=== PATIENT | female | born 1960 | race Caucasian/White ===

== ENCOUNTER → 2017-07-05 08:34 | Outpatient (CLI) | payer BC, SELFPAY ==
[2017-07-05 09:16] LABS: Hemoglobin A1C 7.8 % (0.0-7.0)
[2017-07-05 10:38] LABS: Alanine Aminotransferase 31 U/L (12-78); Albumin Level 3.7 gm/dL (3.4-5.0); Alkaline Phosphatase 85 U/L (46-116); Anion Gap 16.5 mEq/L (5-15); Aspartate Amino Transferase 13 U/L (15-37); Bilirubin,Total 0.3 mg/dL (0.2-1.0); Blood Urea Nitrogen 14 mg/dL (7-18); Calcium 9.4 mg/dL (8.5-10.1); Carbon Dioxide 26 mmol/L (21.0-32.0); Chloride 104 mmol/L (98-107); Chol/HDL Ratio 7.8 (1-3.5); Cholesterol 320 mg/dL (140-200); Estimated Glomerular Filt Rate 87 ml/min (>60); GFR (African American) 105 ML/MIN (>60); Globulin 3.6 gm/dl (1.3-3.2); Glucose 199 mg/dL (74-106); HDL Cholesterol 41 mg/dL (29-89); Potassium 4.5 mmoL/L (3.5-5.1); Sodium 142 mmol/L (136-145); Total Protein,Serum 7.3 gm/dL (6.4-8.2)
[2017-07-05 10:39] LABS: Triglycerides 472 mg/dL (30-200)
== END ==
PROVIDERS: PCP Physician Assistant; Visit Provider Physician Assistant
DX: E11.9 Type 2 diabetes mellitus without complications (principal); I10 Essential (primary) hypertension; Z13.220 Encounter for screening for lipoid disorders
CPT/HCPCS: 36415; 80053; 80061; 83036

== ENCOUNTER → 2018-11-17 07:18 | Outpatient (CLI) | payer BC, SELFPAY ==
--- NOTE | 2018-11-17 07:23 | NM_ITS ---
CARDIOLITE SPECT MYOCARDIAL PERFUSION LEXISCAN, REST AND STRESS: History: Hypertension diabetes, hyperlipidemia, family history, chest pain, shortness of breath and fatigue Procedure: Patient received a 0.4 mg of intravenous Lexiscan, resting heart rate 104 bpm resting blood pressure 138/85, with Lexiscan maximum heart rate achieved was 1 25 bpm which is less than 85% of the maximum] heart rate and a blood pressure was 121/81. With Lexiscan patient complained of nausea and shortness of breath Electrocardiogram: Resting electrocardiogram showed sinus rhythm nonspecific ST-T changes, with Lexiscan there is less than 1.[address] segment depression noted from the baseline EKG. The EKG portion of the Lexiscan Myoview is nondiagnostic. Cardiac stress and resting SPECT images: Cardiac stress and resting SPECT images were obtained using technetium 99 sestamibi 32.6 mCi at stress and 10.9 mCi at rest gated SPECT further analysis of segmental wall motion and calculation of the ejection fraction also done. Cardiac stress and the suspect show uniform myocardial activity without segmental perfusion abnormality, greater derived ejection fraction is over 65% with no regional wall motion abnormality, right ventricle is normal size and contractility. Conclusion: 1. The EKG portion of the Lexiscan Myoview is nondiagnostic. 2. No scintigraphic evidence of reversible ischemia seen, computer derived ejection fraction is over 65% with no regional wall motion abnormality, right ventricle is normal size and contractility. 3. Normal Lexiscan Myoview study.
--- NOTE | 2018-11-17 07:39 | HMH.ITSHM ---
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 []METFORMIN SULINDAC ROBAXIN ROSUVASTATIN MONTEKULAST LISINOPRIL AMITRIPTYLIN
== END ==
PROVIDERS: PCP Family Medicine; Visit Provider Family Medicine
DX: R07.9 Chest pain, unspecified (principal)
CPT/HCPCS: 78452; 93017; A9502; J2785

== ENCOUNTER 2020-09-04 17:41 | Emergency (ER) | payer BC, SELFPAY ==
[2020-09-04 17:42] VITALS: BP 181/95; PULSE 91; RESP 18; TEMP 36.9; O2SAT 99; BMI 34.5
[2020-09-04 18:21] LABS: Microscopic, Urine URINE MICROSCOPIC (MICROSCOPIC)
[2020-09-04 18:23] LABS: Appearance,Urine CLEAR (Clear); Bilirubin,Urine Negative (Negative); Blood, Urine TRACE-I (Negative); Color,Urine YELLOW (Yellow); Glucose,Urine (UA) 3+ (Negative); Ketones,Urine 1+ (Negative); Leukocyte Esterase,Urine Negative (Negative); Nitrate,Urine Negative (Negative); Protein,Urine 2+ (Negative); Specific Gravity, Urine 1.025 (1.005-1.030); Urobilinogen,Urine 0.2 EU/dl (0.2)
[2020-09-04 18:25] LABS: Basophils # 0.1 K/mm3 (0-0.2); Basophils % 0.6 % (0.1-2.0); Eosinophils # 0.2 K/mm3 (0.0-0.4); Eosinophils % 1.8 % (0.1-12.0); Lymphocytes # 3.9 K/mm3 (0.7-4.5); Lymphocytes % 33.2 % (10-50); Mean Corpuscular HGB Conc 34.1 g/dL (31.8-35.4); Mean Corpuscular Hemoglobin 30.3 pg (27.0-31.2); Mean Corpuscular Volume 88.9 fl (81-99); Monocytes # 0.6 K/mm3 (0.1-1.0); Monocytes % 4.8 % (1.7-9.3); Neutrophils # 7.1 K/mm3 (1.8-7.8); Neutrophils % 59.7 % (37.0-80.0); Platelet Count 343 K/mm3 (142-424); Red Blood Count 4.95 M/mm3 (4.20-5.40); White Blood Count 11.8 K/mm3 (4.8-10.8)
[2020-09-04 18:39] LABS: Alanine Aminotransferase 38 U/L (12-78); Albumin Level 4.7 g/dl (3.5-5.0); Albumin/Globulin Ratio 1.4 (1.1-1.8); Alkaline Phosphatase 103 U/L (38-126); Anion Gap 21.1 mEq/L (5-15); Aspartate Amino Transferase 29 U/L (14-36); Bilirubin,Total 0.5 mg/dl (0.2-1.3); Blood Urea Nitrogen 16 mg/dl (7-17); Calcium 10.2 mg/dl (8.4-10.2); Carbon Dioxide 21 mmol/L (22.0-30.0); Chloride 101 mmol/L (98-107); Creatinine Clearance Estimated 101 mL/min (50-200); Estimated Glomerular Filt Rate 73 ml/min (>60); GFR (African American) 89 ML/MIN (>60); Globulin 3.4 g/dL (1.3-3.2); Glucose 364 mg/dl (74-100); Potassium 4.1 mmoL/L (3.5-5.1); Sodium 139 mmol/L (136-145); Total Protein,Serum 8.1 g/dl (6.3-8.2)
[2020-09-04 19:15] VITALS: BP 166/73; PULSE 127; O2SAT 85
--- NOTE | 2020-09-04 19:18 | CT_ITS ---
PROCEDURE: CT ABDOMEN PELVIS WO CON CLINICAL INDICATION: R flank pain Right flank pain COMPARISON: CT ABDPELW/O CT ABD PELVIS W/O CONTRAST from 11/24/2016 TECHNIQUE: Axial images obtained with sagittal and coronal reformats. All CT scans at the facility use one or more dose reduction, viz: automated exposure control, ma/kV adjustment per patient size (including targeted exams where dose is matched to indication, i.e. head), or iterative reconstruction technique. FINDINGS: LOWER THORAX: There is diffuse consolidation in the right lower lobe posteriorly ground-glass attenuation right lower lobe anteriorly medially and within the right middle lobe. Crazy paving pattern in the right lower lobe. No effusions. Mild atelectasis in the lingula. ABDOMEN & PELVIS: Fatty liver with hepatomegaly. There is an area of increased density in the left lobe measuring 2 cm and could represent some focal fatty sparing or a slightly hyperdense lesion. Fatty sparing is suspected in the left hepatic lobe medially. The spleen, adrenal glands, and pancreas have an unremarkable appearance. There is mild right hydronephrosis and hydroureter. A definite ureteral stone however is not identified. There is mild stranding of the right perinephric renal fat. The left kidney has an unremarkable appearance. No stones apparent within the urinary bladder.. No intestinal obstruction or free air. The appendix is not clearly delineated. No evidence of appendicitis.. There is a mild amount of retained colonic feces. No evidence of diverticulitis. No acute bony findings. Small fat containing umbilical hernia. The IMPRESSION: 1. Mild right hydroureteronephrosis. No definite obstructing stones. Differential diagnosis would include recently passed stone, urinary tract infection, or other ureteral lesions. CT urogram may provide further evaluation. 2. Hepatomegaly with fatty liver with an area of increased density in the left hepatic lobe which may be due to focal fatty sparing or a hyperdense lesion. Ultrasound initially may be of further value. 3. Airspace disease in the right lower lobe and right middle lobe. This may be due to pneumonia or pulmonary edema. Minimal atelectatic changes are present in the lingula Dictated by: Isaiah Carter MD 09/05/2020 06:33 Isaiah Carter MD in [place] 09/05/2020 06:33
--- NOTE | 2020-09-04 19:19 | HMH.EDGENADL ---
ED Disposition Clinical Impression: Flank pain Disposition: Still a Patient Condition on Discharge: Good Instructions: DI for Acute Abdominal Pain Referrals: Senthil Burt MD [Primary Care Provider] - - Critical Care Critical Care Time: No Attestation: On 09/04/20, the high probability of a clinically significant, sudden or life threatening deterioration of the following system(s) required my full and direct attention, intervention and personal management. The time I documented below is in addition to time spent performing reported procedures but includes the following listed in this critical care notation. Medical Decision Making - Medical Records Medical records reviewed: Yes: I reviewed the patient's medical records. - Stu Inquiry Pt receiving controlled substance: No Vital Signs: 09/04/20 17:42 Temperature 98.4 F Temperature Source Oral Pulse Rate [Right] 91 H Respiratory Rate 18 Blood Pressure [Right Arm] 181/95 H Blood Pressure Mean [Right Arm] 123 02 Sat by Pulse Oximetry 99 - Lab Data Lab results reviewed: Yes: I reviewed the patient's lab results. Lab Results 09/04/20 18:15: Urine Color Yellow, Urine Appearance Clear, Urine pH 6.0, Ur Specific [place] 1.025, Urine Protein 2+, Urine Glucose (UA) 3+, Urine Ketones 1+, Urine Blood Trace-i, Urine Nitrate Negative, Urine Bilirubin Negative, Urine Urobilinogen 0.2, Ur Leukocyte Esterase Negative, Urine RBC 3-5, Urine WBC 5-10, Ur Squamous Epith Cells 10-20, Urine Bacteria 3+ 09/04/20 18:15: WBC 11.8 H, RBC 4.95, Hgb 15.0, Hct 44.0, MCV 88.9, MCH 30.3, MCHC 34.1, RDW 13.0, Plt Count 343, MPV 7.0 L, Neut % (Auto) 59.7, Lymph % (Auto) 33.2, [place] % (Auto) 4.8, Eos % (Auto) 1.8, Baso % (Auto) 0.6, Neut # (Auto) 7.1, Lymph # (Auto) 3.9, [place] # (Auto) 0.6, Eos # (Auto) 0.2, Baso # (Auto) 0.1 09/04/20 18:15: Sodium 139, Potassium 4.1, Chloride 101, Carbon Dioxide 21 L, Anion Gap 21.1 H, BUN 16, Creatinine 0.80, Estimated Creat Clear 101, Estimated GFR 73, Est GFR ( Amer) 89, Glucose 364 H, Calcium 10.2, Total Bilirubin 0.5, AST 29, ALT 38, Alkaline Phosphatase 103, Total Protein 8.1, Albumin 4.7, Globulin 3.4 H, Albumin/Globulin Ratio 1.4 Result diagrams: 09/04/20 18:15 09/04/20 18:15 Orders (Tests/Meds): ED MEDICATIONS Generic Name Dose Route Start Last Admin Trade Name Freq PRN Reason Stop Dose Admin Sodium Chloride 1,000 mls @ 999 mls/hr 09/04/20 18:15 09/04/20 18:18 Sod Chlor 0.9% 1000ml Bag IV 09/04/20 19:15 999 mls/hr .[id number] SERINA Administration Discontinued Medications Generic Name Dose Route Start Last Admin Trade Name Freq PRN Reason Stop Dose Admin Ketorolac Tromethamine 15 mg 09/04/20 18:06 09/04/20 18:18 Ketorolac 30mg/Ml Vial IV 09/04/20 18:07 15 mg ONCE ONE Administration Ondansetron HCl 4 mg 09/04/20 18:07 09/04/20 18:18 Ondansetron 4mg/2ml Vial IV 09/04/20 18:08 4 mg ONCE ONE Administration Promethazine HCl 25 mg 09/04/20 19:21 09/04/20 19:22 Promethazine Hcl 25mg/Ml 1ml Vial IV 09/04/20 19:22 25 mg ONCE ONE Administration Sodium Chloride 25 ml 09/04/20 19:21 09/04/20 19:23 Sodium Chloride 0.9% 25ml Bag IV 09/04/20 19:22 25 ml ONCE ONE Administration ORDERS Category Date Time Status CT abdomen pelvis wo con Stat Cat Scan 09/04/20 19:18 Taken Urine Culture Stat Micro 09/04/20 18:15 Received Medical Decision Narrative: 60yo F evaluated secondary to right flank pain. Differential diagnosis includes was not limited to: Pneumonia, PE, pyelonephritis, kidney stone, musculoskeletal strain, pancreatitis. Patient is in no acute distress on initial evaluation. Labs have already been collected and resulted. Labs are largely unremarkable. Given the patient's presenting symptoms, she will be sent for CT of the abdomen pelvis without IV contrast to rule out kidney stone. Signed out at shift change. General Adult HPI - General Chief complaint: Abdomina
[2020-09-04 19:45] VITALS: BP 150/65; PULSE 127; O2SAT 80
[2020-09-04 20:06] LABS: Bacteria,Urine 3+ /lpf
[2020-09-04 21:16] VITALS: BP 149/78; PULSE 95; RESP 16; TEMP 36.9; O2SAT 97
== END 2020-09-04 21:40 | disposition home or self-care (01) ==
PROVIDERS: Emergency Provider Family Medicine; PCP Family Medicine
DX: N20.0 Calculus of kidney (principal); N39.0 Urinary tract infection, site not specified; Z88.5 Allergy status to narcotic agent
CPT/HCPCS: 74176; 80053; 81001; 85025; 87086; 87088; 87186; 96375; 99283; J2405

== ENCOUNTER → 2020-09-25 13:37 | Outpatient (CLI) | payer BC, SELFPAY | PROVIDERS: PCP Family Medicine; Visit Provider Family Medicine | DX: G47.33 Obstructive sleep apnea (adult) (pediatric) (principal); I10 Essential (primary) hypertension; R06.83 Snoring; R53.83 Other fatigue | CPT/HCPCS: G0399 ==

== ENCOUNTER → 2020-12-08 12:04 | Outpatient (CLI) | payer BC, SELFPAY | PROVIDERS: PCP Family Medicine; Visit Provider Nurse Practitioner Family | DX: G47.33 Obstructive sleep apnea (adult) (pediatric) (principal) | CPT/HCPCS: 94762 ==

== ENCOUNTER 2021-02-05 13:28 | Inpatient (IN) | payer BC, SELFPAY ==
[2021-02-05] VITALS (18 sets, daily range): BP systolic 108–134; BP diastolic 58–74; PULSE 72–90; RESP 14–30; TEMP 36.6; O2SAT 46–96; BMI 29.6; BMI 27.6
--- NOTE | 2021-02-05 13:38 | PC.NURSE ---
at bedside upon arrival
--- NOTE | 2021-02-05 13:44 | HMH.EDGENADL ---
ED Disposition Clinical Impression: Acute respiratory failure with hypoxia, COVID-19 Disposition: Admitted As Inpatient Condition on Discharge: Fair Referrals: Sumanth Chaves MD [Primary Care Provider] - Time of Disposition: 13:49 - Critical Care Critical Care Time: Yes (35) Attestation: On 02/05/21, the high probability of a clinically significant, sudden or life threatening deterioration of the following system(s) required my full and direct attention, intervention and personal management. The time I documented below is in addition to time spent performing reported procedures but includes the following listed in this critical care notation. Total Critical Care Time: 35 Vital system(s) involved:: Respiratory Failure My critical care processes included: Assessment & monitoring of V/S, Initial and Re-exams, Data Review/Interpretation, Coordinating Care, Medication Orders and management, Documentation Medical Decision Making - Medical Records Medical records reviewed: Yes: I reviewed the patient's medical records. - Stu Inquiry Pt receiving controlled substance: No Vital Signs: 02/05/21 13:30 02/05/21 13:31 02/05/21 13:35 Temperature 97.9 F Temperature Source Oral Pulse Rate [Left Radial] 90 Respiratory Rate 28 H Blood Pressure [Right Arm] 121/70 Blood Pressure Mean [Right Arm] 87 Blood Pressure Source [Right Arm] Automatic Cuff Blood Pressure Position [Right Arm] Sitting 02 Sat by Pulse Oximetry 46 L 80 L 95 Oxygen Delivery Method Room Air Non-Rebreather BiPAP - Lab Data Lab results reviewed: Yes: I reviewed the patient's lab results. Lab Results 02/05/21 13:45: WBC 10.0, RBC 4.61, Hgb 14.4, Hct 42.9, MCV 93.0, MCH 31.2, MCHC 33.5, RDW 13.0, Plt Count 352, MPV 7.7, Neut % (Auto) 81.0 H, Lymph % (Auto) 14.1, [place] % (Auto) 3.7, Eos % (Auto) 0.1, Baso % (Auto) 1.1, Neut # (Auto) 8.1 H, Lymph # (Auto) 1.4, [place] # (Auto) 0.4, Eos # (Auto) 0.0, Baso # (Auto) 0.1 02/05/21 13:45: Sodium 141, Potassium 4.4, Chloride 108 H, Carbon Dioxide 17 L, Anion Gap 20.4 H, BUN 29 H, Creatinine 0.90, Estimated Creat Clear 77, Estimated GFR 64, Est GFR ( Amer) 77, Glucose 320 H, Calcium 8.9, Total Bilirubin 0.4, AST 75 H, ALT 35, Alkaline Phosphatase 137 H, Troponin I < 0.01, NT-Pro-B Natriuret Pep 275 H, Total Protein 7.8, Albumin 3.8, Globulin 4.0 H, Albumin/Globulin Ratio 1.0 L 02/05/21 13:47: SARS-CoV-2 (PCR) Detected A, Influenza A Untype (PCR) Not detected, Influenza Type B (PCR) Not detected Result diagrams: 02/05/21 13:45 02/05/21 13:45 - ECG Data Tracing #1 I reviewed this ECG and interpreted as documented below: 83 beats minute, normal sinus rhythm, no ST elevation or depression, normal intervals, no ectopy. ECG initial impression date: 02/05/21 ECG initial impression time: 13:56 Medical Decision Narrative: 60yo F evaluated for acute respiratory failure. Patient is in significant distress on initial evaluation with an O2 sat of 44% on room air. She is placed on a nonrebreather 15 L and her O2 saturation improves to 80. Respiratory therapy was in the department at this time and was asked to initiate BiPAP. Laboratory studies were ordered. Patient will obviously need to be admitted for further management of her respiratory distress. Patient states she would want to be intubated and a full code if it came to that. Patient positive for Covid. Mild increase in AST. Troponin negative. General Adult HPI - General Stated complaint: covid symptoms Time Seen by Provider: 02/05/21 13:28 Mode of Arrival: Ambulatory Source of Information: Patient - History of Present Illness HPI narrative: 60yo F reports the emergency department secondary to hypoxia. Patient is concerned she has Covid. Reports that she has been tested but the results are not back yet. States she has had worsening symptoms for the past 3 days. Reports recent travel to [place]. Reports 1 day of diarrhea but h
--- NOTE | 2021-02-05 13:54 | ECG_ITS ---
APPROVED REPORT Exam: Resting ECG HR:83 bpm ECG Measurements Heart Rate 83 AXES IA 148 P 45 QRSd 76 QRS -20 QT 382 T -2 QTc 448 Conclusion Normal sinus rhythm Low voltage QRS Nonspecific T wave abnormality Abnormal ECG Electronically signed by : Fabio Kovacs MD 02/07/2021 07:33:44
[2021-02-05 14:20] LABS: Basophils # 0.1 K/mm3 (0-0.2); Basophils % 1.1 % (0.1-2.0); Eosinophils % 0.1 % (0.1-12.0); Hematocrit 42.9 % (37.0-47.0); Hemoglobin 14.4 g/dL (12.2-16.2); Lymphocytes # 1.4 K/mm3 (0.7-4.5); Lymphocytes % 14.1 % (10-50); Mean Corpuscular HGB Conc 33.5 g/dL (31.8-35.4); Mean Corpuscular Hemoglobin 31.2 pg (27.0-31.2); Mean Platelet Volume 7.7 fl (7.4-10.4); Monocytes # 0.4 K/mm3 (0.1-1.0); Monocytes % 3.7 % (1.7-9.3); Neutrophils # 8.1 K/mm3 (1.8-7.8); Platelet Count 352 K/mm3 (142-424); Red Blood Count 4.61 M/mm3 (4.20-5.40)
[2021-02-05 14:36] LABS: Alanine Aminotransferase 35 U/L (12-78); Albumin Level 3.8 g/dl (3.5-5.0); Alkaline Phosphatase 137 U/L (38-126); Anion Gap 20.4 mEq/L (5-15); Aspartate Amino Transferase 75 U/L (14-36); Bilirubin,Total 0.4 mg/dl (0.2-1.3); Blood Urea Nitrogen 29 mg/dl (7-17); Calcium 8.9 mg/dl (8.4-10.2); Carbon Dioxide 17 mmol/L (22.0-30.0); Chloride 108 mmol/L (98-107); Creatinine Clearance Estimated 77 mL/min (50-200); Estimated Glomerular Filt Rate 64 ml/min (>60); GFR (African American) 77 ML/MIN (>60); Glucose 320 mg/dl (74-100); Potassium 4.4 mmoL/L (3.5-5.1); Sodium 141 mmol/L (136-145); Total Protein,Serum 7.8 g/dl (6.3-8.2)
[2021-02-05 14:38] LABS: Coronavirus 19, PCR Detected (NotDetected); Influenza A, PCR Not Detected (NotDetected); Influenza B, PCR Not Detected (NotDetected)
[2021-02-05 14:49] LABS: NT Pro Brain Natriuretic Pep. 275 pg/mL (0-125)
[2021-02-05 15:03] LABS: Troponin I < 0.01 ng/ml (0.00-0.034)
--- NOTE | 2021-02-05 15:30 | XR_ITS ---
PROCEDURE: XR CHEST PORTABLE CLINICAL HISTORY: covid COMPARISON: CR CXR CHEST(2 VIEWS-NOT PORTABLE) from 04/24/2013 CR CXR1 CHEST-PORTABLE from 11/24/2016 FINDINGS: The cardiomediastinal silhouette and pulmonary vascularity are within normal limits. Diffuse bilateral multifocal pneumonia consistent with Covid19 pneumonia with some sparing in the left apex. No evidence of pneumothorax. No pleural effusions. No acute bony abnormalities. IMPRESSION: Diffuse bilateral multifocal pneumonia consistent with Covid19 pneumonia Dictated by: Isaiah Carter MD 02/05/2021 16:42 Isaiah Carter MD in [place] 02/05/2021 16:42
--- NOTE | 2021-02-05 16:43 | HMH.HP ---
*Admission Date: 02/05/21 <Netta Serrato - 02/05/21 16:50> *Chief complaint: Shortness of breath <Netta Serrato 02/05/21 16:50> *History of present illness: Ms. Hansen is a 60-year old female with a history of type 2 diabetes mellitus, cervical disc disease, hypertension, hyperlipidemia, and allergic rhinitis who has been sick for the last 3 days. She presented to the emergency room due to. Progressive shortness of breath. She states she has also had a cough but denies a fever. She states that she got so weak that she could not even see. She also states that she has had some diarrhea but no vomiting. She has a minimal p.o. intake for the last 3 days. Noted to that she has been to [place] recently and exposed to Covid. She has not had Covid immunization. Upon arrival to the emergency room she was in acute distress. Initially she was placed on a Ventimask due to O2 sats being 40%. This improved her saturation but she was still suboptimal. She was thus placed on BiPAP with an increase in her O2 sats greater than 90.. Chest x-ray has not been read as yet. Laboratory data revealed a white blood cell count of 10,000 with a hemoglobin of 14.4 and hematocrit of 42.9. Blood chemistries show sodium of 141 potassium of 4.4 with a BUN of 29 and creatinine 0.9. Blood sugar is 320. Liver function studies showed an elevated AST at 75 and a normal ALT at 35. Alkaline phosphatase is also elevated at 137 troponin I 0.01. BNP is 275. Covid PCR test was detected. Flu a and B were negative. At time of this exam patient is comfortable. She states she is breathing better. She would like to have the mask off. She is thirsty and was assisted with a drink of water. She denies chest pain and abdominal pain. She states she does have a periodic nonproductive cough. <Netta Serrato 02/05/21 16:50> [facility] History Medical History: Reports:: Chronic Obstructive Pulmonary Disease (COPD), Diabetes Mellitus Type 2, Hyperlipidemia, Hypertension <Netta Serrato 02/05/21 16:50> *Have you ever received a pneumonia vaccine?: No <Netta Serrato 02/05/21 16:50> *Have you received a flu vaccine this season?: No <Netta Serrato 02/05/21 16:50> Other Surgeries: Yes: Tubal Ligation <Netta Serrato 02/05/21 16:50> Amputation: No <Netta Serrato 02/05/21 16:50> Fractures: No <Netta Serrato 02/05/21 16:50> - *Social History Smoking Status: Never smoker <Netta Serrato 02/05/21 16:50> Alcohol Intake: never <Netta Serrato 02/05/21 16:50> Alcohol Intake Frequency:: other <Netta Serrato 02/05/21 16:50> Substance Use Type: denies use <Netta Serrato 02/05/21 16:50> *Occupational Status:: employed <Netta Serrato 02/05/21 16:50> Housing: house <eNtta Serrato 02/05/21 16:50> Household Members: spouse <Netta Serrato 02/05/21 16:50> *Travel in the last 8 weeks: Inside the [facility] (to [facility]) <Netta Serrato 02/05/21 17:27> Family Hx:: Diabetes, Hypertension, Coronary Artery Disease, Stroke <Netta Serrato 02/05/21 16:50> Review of Systems - Constitutional Denies fever(s), Denies lack of energy <Netta Serrato 02/05/21 17:27> - Eyes Denies blurry vision, Denies change in vision <RojelioNetta 02/05/21 17:27> - ENT Denies ear pain, Denies sore throat <RojelioNetta 02/05/21 17:27> - *Cardiovascular Reports shortness of breath, Denies chest pain, Denies irregular heart rhythm <Netta Serrato 02/05/21 17:27> - *Respiratory Reports cough, Reports shortness of breath, Denies excessive phlegm production <RojelioNetta 02/05/21 17:27> - *Gastrointestinal Reports loose stools, Denies abdominal pain, Denies nausea, Denies vomiting <RojelioNetta 02/05/21 17:27> - *Genitourinary Denies difficulty urinating <Netta Serrato - 02/05/21 17:27> - *Musculoskeletal Reports abnormal walking (due to SOB) <Netta Serrato - 02/05/21 17:27> - *Neurologic Reports dizziness, Denies seizure-like activity <Rhiannon Serrato
--- NOTE | 2021-02-05 16:48 | PC.NURSE ---
Report called to Jessica RICHTER
[2021-02-05 16:56] LABS: Procalcitonin 0.455 ng/mL (0.0-2.0)
[2021-02-05 21:35] LABS: POC Glucose,Bedside 178 (70-110)
--- NOTE | 2021-02-05 21:53 | PC.NURSE ---
Bonnie consulted for Remdesivir.
--- NOTE | 2021-02-05 22:27 | PC.NURSE ---
notified of pt O2 sats declining. Pt is currently on 100% Bipap. Also clarified with about lovenox.New orders received. Obtain ABG. Give lovenox now.
[2021-02-05 22:37] LABS: ABG Base Excess -8.6 mmol/L (-2.4-2.3); ABG HCO3 17.6 mmhg (22.0-26.0); ABG Oxygen Saturation 91 % (90-100); ABG PCO2 35.1 mmhg (35.0-45.0); ABG PH 7.32 mmol/L (7.35-7.45); ABG PO2 64.9 mmhg (80-100); ABG TCO2 18.6 mmhg (23-27)
[2021-02-05 22:41] LABS: Allen's Test acceptable; Oxygen 100 %
[2021-02-06] VITALS (27 sets, daily range): BP systolic 70–190; BP diastolic 52–142; PULSE 50–120; RESP 0–28; TEMP 36.4–38.3; O2SAT 84–97; BMI 30.2
--- NOTE | 2021-02-06 04:33 | PC.NURSE ---
Pt is remains on Bipap with O2 sats in low 90s with periods of desaturation in mid t upper 80s and as low as upper 70s. Lungs are diminished t/o. Pt declined turning and repositioning. Pt has voided x2. No BM. Medication administered per jul. Will continue to monitor.
--- NOTE | 2021-02-06 06:00 | XR_ITS ---
PROCEDURE INFORMATION: Exam: XR Chest Exam date and time: 02/06/2021 6:00 AM Age: 60 years old Clinical indication: Shortness of breath; Patient HX: Covid; Additional info: Resp failure TECHNIQUE: Imaging protocol: XR of the chest. Views: 1 view. COMPARISON: CR XR CHEST PORTABLE 02/05/2021 4:00 PM FINDINGS: Lungs: Similar patchy consolidation bilateral lungs. Pleural spaces: Unremarkable. No pleural effusion. No pneumothorax. Heart/Mediastinum: Unremarkable. No cardiomegaly. Bones/joints: Unremarkable. IMPRESSION: No change in multifocal pneumonia bilaterally.
[2021-02-06 06:44] LABS: Basophils # 0.1 K/mm3 (0-0.2); Eosinophils % 0.1 % (0.1-12.0); Hematocrit 38.5 % (37.0-47.0); Lymphocytes # 1.4 K/mm3 (0.7-4.5); Lymphocytes % 13.6 % (10-50); Mean Corpuscular Hemoglobin 30.4 pg (27.0-31.2); Mean Platelet Volume 7.9 fl (7.4-10.4); Monocytes # 0.4 K/mm3 (0.1-1.0); Monocytes % 3.7 % (1.7-9.3); Neutrophils # 8.3 K/mm3 (1.8-7.8); Neutrophils % 81.6 % (37.0-80.0); Platelet Count 378 K/mm3 (142-424); Red Blood Count 4.05 M/mm3 (4.20-5.40); Red Cell Distribution Width 13.1 % (11.5-17.5); White Blood Count 10.1 K/mm3 (4.8-10.8)
[2021-02-06 07:13] LABS: Alanine Aminotransferase 25 U/L (12-78); Albumin Level 3.1 g/dl (3.5-5.0); Albumin/Globulin Ratio 0.8 (1.1-1.8); Alkaline Phosphatase 81 U/L (38-126); Anion Gap 19.2 mEq/L (5-15); Aspartate Amino Transferase 99 U/L (14-36); Bilirubin,Total 0.9 mg/dl (0.2-1.3); Blood Urea Nitrogen 28 mg/dl (7-17); Calcium 8.1 mg/dl (8.4-10.2); Carbon Dioxide 17 mmol/L (22.0-30.0); Chloride 113 mmol/L (98-107); Creatinine Clearance Estimated 100 mL/min (50-200); Estimated Glomerular Filt Rate 85 ml/min (>60); GFR (African American) 103 ML/MIN (>60); Glucose 203 mg/dl (74-100); Potassium 5.2 mmoL/L (3.5-5.1); Sodium 144 mmol/L (136-145); Total Protein,Serum 7.1 g/dl (6.3-8.2)
[2021-02-06 07:29] LABS: Hemoglobin 12.3 g/dL (12.2-16.2)
--- NOTE | 2021-02-06 07:36 | HMH.PHAVTE ---
[facility] Pharm[facility] VTE Monitoring - Patient Demographics Admission date: 02/05/21 Report Date: 02/06/21 Time: 07:36 Allergies/Adverse Reactions: Patient Allergies meperidine [From DEMEROL] Allergy (Mild, Verified 01/10/21 08:00) Height: 1.57 m Weight: 74.417 kg Patient Problems: Current Active Problems Acute respiratory failure with hypoxia (Acute) COVID-19 (Acute) Type 2 diabetes mellitus (Acute) Hypertension (Acute) Pneumonia due to COVID-19 virus (Acute) - VTE Risk Labs: VTE Related Lab Results Hgb 12.3 g/dL (12.2-16.2) D 02/06/21 05:35 Hct 38.5 % (37.0-47.0) 02/06/21 05:35 Plt Count 378 K/mm3 (142-424) 02/06/21 05:35 BUN 28 mg/dl (7-17) H 02/06/21 05:35 Creatinine 0.70 mg/dl (0.52-1.04) D 02/06/21 05:35 Estimated Creat Clear 100 mL/min (50-200) 02/06/21 05:35 VTE Score: 1 VTE Risk Level: Low Risk - Prophylaxis VTE Prophylaxis Ordered?: Yes Types of VTE Prophylaxis: TEDS Knee High, Pharmacological Location of Applied Device: Bilateral Lower Extremeties Pharmacologic Type: Enoxaparin
[2021-02-06 08:06] LABS: ABG Base Excess -5.5 mmol/L (-2.4-2.3); ABG HCO3 19.8 mmhg (22.0-26.0); ABG Oxygen Saturation 92 % (90-100); ABG PCO2 35.1 mmhg (35.0-45.0); ABG PH 7.37 mmol/L (7.35-7.45); ABG PO2 65.5 mmhg (80-100); ABG TCO2 20.9 mmhg (23-27)
--- NOTE | 2021-02-06 08:18 | HMH.ACPN2 ---
<Netta Serrato - Last Filed: 02/06/21 08:18> Internal Medicine - PN: Subj *Date: 02/06/21 *Time: 08:18 Interval history: Patient indicates she is doing okay. She remains on BiPAP with satisfactory O2 sat. Sats do decrease when taken off the BiPAP for any reason. She denies chest pain. She did not sleep much last night due to activity. CBC is stable. Blood chemistries show sodium of 124 and potassium of 5.2. Renal function was satisfactory with a BUN of 28 creatinine 0.7. AST is elevated at 99 with an ALT normal at 25. Chest x-ray on admission did show diffuse bilateral multifocal pneumonia consistent with COVID-19 pneumonia with repeat chest x-ray this a.m. showing no change in multifocal pneumonia bilaterally. Exam Vital signs and Labs for Last 24 Hours: Temp Pulse Resp BP Pulse Ox 98.1 F 82 27 H 116/63 92 L 02/06/21 08:00 02/06/21 08:00 02/06/21 08:00 02/06/21 08:00 02/06/21 08:00 Laboratory Results - last 24 hr 02/05/21 13:45: WBC 10.0, RBC 4.61, Hgb 14.4, Hct 42.9, MCV 93.0, MCH 31.2, MCHC 33.5, RDW 13.0, Plt Count 352, MPV 7.7, Neut % (Auto) 81.0 H, Lymph % (Auto) 14.1, [place] % (Auto) 3.7, Eos % (Auto) 0.1, Baso % (Auto) 1.1, Neut # (Auto) 8.1 H, Lymph # (Auto) 1.4, [place] # (Auto) 0.4, Eos # (Auto) 0.0, Baso # (Auto) 0.1 02/05/21 13:45: Sodium 141, Potassium 4.4, Chloride 108 H, Carbon Dioxide 17 L, Anion Gap 20.4 H, BUN 29 H, Creatinine 0.90, Estimated Creat Clear 77, Estimated GFR 64, Est GFR ( Amer) 77, Glucose 320 H, Calcium 8.9, Total Bilirubin 0.4, AST 75 H, ALT 35, Alkaline Phosphatase 137 H, Troponin I < 0.01, NT-Pro-B Natriuret Pep 275 H, Total Protein 7.8, Albumin 3.8, Globulin 4.0 H, Albumin/Globulin Ratio 1.0 L 02/05/21 13:45: Procalcitonin 0.455 02/05/21 13:47: SARS-CoV-2 (PCR) Detected A, Influenza A Untype (PCR) Not detected, Influenza Type B (PCR) Not detected 02/05/21 21:16: POC Glucose 178 H 02/05/21 22:23: Specimen Source r radial, O2 % 100, ABG pH 7.32 L, ABG pCO2 35.1, ABG pO2 64.9 L, ABG HCO3 17.6 L, ABG Total CO2 18.6 L, ABG O2 Saturation 91, ABG Base Excess -8.6 L, Isaiah Test acceptable, Tidal Volume 12/6 02/06/21 05:35: WBC 10.1, RBC 4.05 L, Hgb 12.3 D, Hct 38.5, MCV 95.0, MCH 30.4, MCHC 32.0, RDW 13.1, Plt Count 378, MPV 7.9, Neut % (Auto) 81.6 H, Lymph % (Auto) 13.6, [place] % (Auto) 3.7, Eos % (Auto) 0.1, Baso % (Auto) 1.0, Neut # (Auto) 8.3 H, Lymph # (Auto) 1.4, [place] # (Auto) 0.4, Eos # (Auto) 0.0, Baso # (Auto) 0.1 02/06/21 05:35: Sodium 144, Potassium 5.2 H, Chloride 113 H, Carbon Dioxide 17 L, Anion Gap 19.2 H, BUN 28 H, Creatinine 0.70 D, Estimated Creat Clear 100, Estimated GFR 85, Est GFR ( Amer) 103 D, Glucose 203 H D, Calcium 8.1 L, Total Bilirubin 0.9, AST 99 H D, ALT 25 D, Alkaline Phosphatase 81, Total Protein 7.1, Albumin 3.1 L D, Globulin 4.0 H, Albumin/Globulin Ratio 0.8 L I & O for Last 24 hours: Intake & Output 02/03/21 02/04/21 02/05/21 02/06/21 11:59 11:59 11:59 11:59 Output Total 200 / 200 Balance -200 / -200 Weight 164 lb 1 oz - Constitutional no acute distress Comments: able to assist with exam - *Routine Respiratory Exam Present: CTA bilaterally (A&P) - *Routine Cardiovascular Exam Present: RRR - *Routine Abdominal Exam Present: soft, normoactive bowel sounds. Absent: tenderness - *Routine Extremities Exam Present: full ROM, pulses intact. Absent: edema, calf tenderness - *Routine Neurological Exam Present: alert, oriented X3 Assessment and Plan (1) Pneumonia due to COVID-19 virus Status: Acute Category: Medical Code(s): U07.1 - COVID-19; J12.82 - Pneumonia due to coronavirus disease 2019 (2) COVID-19 Status: Acute Category: Medical Code(s): U07.1 - COVID-19 (3) Acute respiratory failure with hypoxia Status: Acute Category: Medical Code(s): J96.01 - Acute respiratory failure with hypoxia (4) Type 2 diabetes mellitus Status: Acute Category: Medical Code(s): E11.9 - Type 2 diabetes
[2021-02-06 08:23] LABS: Oxygen 100 %
[2021-02-06 08:24] LABS: Allen's Test ACCEPTABLE; Source Left Radial
--- NOTE | 2021-02-06 09:43 | XR_ITS ---
PROCEDURE: XR CHEST PORTABLE CLINICAL HISTORY: POST INTUBATION COMPARISON: CR CXR1 CHEST-PORTABLE from 11/24/2016 CR XR CHEST PORTABLE from 02/05/2021 CR XR CHEST PORTABLE from 02/06/2021 FINDINGS: 9:57 a.m.. There has been interval insertion of endotracheal tube. The tip is in good position 4.4 cm above the david. No change diffuse bilateral pneumonia. No evidence of pneumothorax. No acute bony abnormalities. IMPRESSION: Interval insertion of endotracheal tube which is in good position with no change in the diffuse bilateral pneumonia Dictated by: Isaiah Carter MD 02/06/2021 10:37 Isaiah Carter MD in [place] 02/06/2021 10:37
--- NOTE | 2021-02-06 09:50 | PC.NURSE ---
0845: Dr. Burt at bedside rounding. 0900: Dr. Arthur rodriguez. Spoke with patient about intubation. Patient agree's to be intubated. 0912: Che Rendon RN speaking to patient's spouse. Informed him that patient is going to be intubated. Patient stated she was texting spouse. 0920: Dr. Samuels, ED MD, at bedside speaking to patient. He addressed code status and asked her if she wanted to be intubated. Patient agrees to be intubated and wants to remain a FC. 0930: #20 RFA inserted. 0935: Respiratory Team: Mercy Guerra Natalie, at bedside. Dr. Samuels at bedside. Che Rendon, ROBER, Duane Robb RN and ALBERTO Pratt. 0939: DR. Samuels pushed 30mg Etomidate 0941: Dr. Samuels pushed 100mg of Rocuronium Vitals: BP:129/67 HR:87, RR:28, SPO2: 86% 0944: Patient intubated with 7.5 ETT, 23 at teeth. Color change noted and bilateral breath sounds auscultated. ETT secured with holister renteria and patient placed on ventilator. Vent settings as follows: TV:440 RR:24 PEEP: 15, FIO2: 100% Vitals: BP:134/90 HR:112, RR:16, SPO2: 82% 0944: Fentanyl drip and Propofol drip started. Compatibile to run in same line. Verified with Pharmacy. 0947: BP: 182/96 HR: 108, SPO2: 86$% 0950: Manual BP's taken: Right arm:180/110 Left arm:190/142 0957: Radiology at bedside for STAT CXR.
--- NOTE | 2021-02-06 10:34 | PC.NURSE ---
1 hour post intubation ABG placed per R.T.
--- NOTE | 2021-02-06 10:48 | PC.NURSE ---
1040: Dr. Gibson updated on patient status. reviewed current vent settings and he is ok with them as this time.
[2021-02-06 11:00] LABS: ABG Base Excess -11.4 mmol/L (-2.4-2.3); ABG HCO3 16.4 mmhg (22.0-26.0); ABG Oxygen Saturation 90 % (90-100); ABG PCO2 41.3 mmhg (35.0-45.0); ABG PH 7.22 mmol/L (7.35-7.45); ABG PO2 66.2 mmhg (80-100); ABG TCO2 17.6 mmhg (23-27); Allen's Test Patient Unable; Oxygen 100 %; PEEP 16; Source Right Radial; Tidal Volume 440; Vent Rate 24
[2021-02-06 11:20] LABS: Microscopic, Urine URINE MICROSCOPIC (MICROSCOPIC)
[2021-02-06 11:25] LABS: Appearance,Urine SL CLOUDY (Clear); Bilirubin,Urine Negative (Negative); Blood, Urine 1+ (Negative); Color,Urine YELLOW (Yellow); Glucose,Urine (UA) 3+ (Negative); Ketones,Urine 1+ (Negative); Leukocyte Esterase,Urine Negative (Negative); Nitrate,Urine POSITIVE (Negative); PH,Urine 5.5 (5.0-8.5); Protein,Urine 2+ (Negative); Specific Gravity, Urine 1.025 (1.005-1.030); Urobilinogen,Urine 0.2 EU/dl (0.2)
--- NOTE | 2021-02-06 11:28 | PC.NURSE ---
1115 Pt PEEP increased to 18 due to decreased oxygen SPO2.
[2021-02-06 11:40] LABS: Bacteria,Urine 1+ /lpf; RBC,Urine Occasional #/hpf (0-3)
--- NOTE | 2021-02-06 12:09 | HMH.PULMCON ---
*Admission Date: 02/05/21 *Reason for consult:: Acute hypoxic respiratory failure, COVID-19 pneumonia *History of present illness: Ms. Hernandes is a 60-year-old female no significant smoking history, previous use inhalers 3 years ago intermittently for couple of months, no significant prior respiratory complaints, yet to be vaccinatedhistory of type 2 diabetes mellitus, cervical disc disease, hypertension, hyperlipidemia, and allergic rhinitis presented to hospital with worsening respiratory symptoms for the last 3 days and upon presentation to ED patient needing noninvasive ventilator support to maintain her oxygen saturations and pulmonary was called for further management. [facility] History Medical History: Reports:: Chronic Obstructive Pulmonary Disease (COPD), Diabetes Mellitus Type 1, Diabetes Mellitus Type 2, Hyperlipidemia, Hypertension *Have you ever received a pneumonia vaccine?: No *Have you received a flu vaccine this season?: No Other Surgeries: Yes: Tubal Ligation Amputation: No Fractures: No - *Social History Smoking Status: Never smoker Alcohol Intake: never Alcohol Intake Frequency:: other Substance Use Type: denies use *Occupational Status:: employed Housing: house Household Members: spouse *Travel in the last 8 weeks: None Family Hx:: Diabetes, Hypertension, Coronary Artery Disease, Stroke ROS - Cons Reports body ache(s), Reports chills - Eyes Denies sensitivity to light - ENT Reports abnormal hearing - Card Reports shortness of breath, Reports shortness of breath with activity - Resp Respiratory: Reports chest congestion, Reports cough, Reports non-productive cough, Reports dyspnea on exertion, Denies excessive phlegm production - GI Gastrointestingal: Denies: abdominal pain - [place] Musculoskeletal: Denies decreased muscle mass - Psych Reports abnormal sleep pattern Meds Home Medications Medication Instructions Recorded Confirmed Type glimepiride 4 mg tablet 4 mg PO DAILY tab 10/18/20 02/05/21 History hydroxyzine HCl 25 mg tablet 25 mg PO HS tab 10/18/20 02/06/21 History lisinopril 10 mg tablet 20 mg PO DAILY tab 10/18/20 02/06/21 History loratadine 10 mg tablet 10 mg PO DAILY 10/18/20 02/05/21 History metformin 500 mg tablet,extended 500 mg PO BID tab 10/18/20 02/05/21 History release 24 hr methocarbamol 500 mg tablet 500 mg PO BID tab 10/18/20 02/05/21 History montelukast 10 mg tablet 10 mg PO DAILY tab 10/18/20 02/05/21 History bnwrltswqayw-qzkifjwh-pnfcxqn-folic 1 tab PO DAILY 10/18/20 02/05/21 History acid 400 mcg-vit K1 20 mcg tablet rosuvastatin 5 mg tablet 5 mg PO MOWEFR tab 10/18/20 02/06/21 History sulindac 200 mg tablet 200 mg PO BID tab 10/18/20 02/05/21 History empagliflozin 25 mg tablet 25 mg PO DAILY tab 11/29/20 02/05/21 History apple cider vinegar 500 mg tablet 500 mg PO BID 01/10/21 02/06/21 History trazodone 50 mg tablet 50 mg PO HS #60 tab 01/10/21 02/05/21 Rx Duloxetine HCl 60 mg PO DAILY 02/06/21 02/06/21 History Allergies Allergy/AdvReac Type Severity Reaction Status Date / Time meperidine [From DEMEROL] Allergy Mild Verified 01/10/21 08:00 Exam - Constitutional Constitutional:: Absent: no acute distress, comfortable - HENMT Exam HENMT: Present: normocephalic, atraumatic - Eye Exam Eyes:: Present: normal appearance both eyes and related structures - Neck Exam Neck:: Present: normal visual inspection - Respiratory Exam Respiratory:: Present: respiratory distress, crackles. Absent: able to speak in complete sentences - Cardiovascular Exam Cardiac:: Present: S1, S2 - GI Exam GI:: Present: soft - Skin Exam Skin: Present: warm, no rash - Neurological Exam Neurological: Present: alert, awake, normal cognition - Extremities Exam Extremities: Present: no cyanosis, no clubbing, no edema Internal Medicine - CN: Reslt - Labs CBC & Chem 7: 02/06/21 05:35 02/06/21 05:35 Labs: Short CBC 02/05/21 02/06/21 Range/Units 13:
--- NOTE | 2021-02-06 12:15 | CA_ITS ---
APPROVED REPORT Bilateral Lower Extremity Venous Study for DVT. [employer]eter: Maye Zayas, KANDIS Indications Hypoxia,COVID,PT INTUBATED,HTN,HLD,DM Vein Imaging CFV (R): compressive, spontaneous, phasic, augmentation FEM (R): compressive, spontaneous, phasic, augmentation POP (R): compressive, spontaneous, phasic, augmentation PTV (R): Compressible GSV (R): Compressible Peroneals (R):Compressible GAS (R): Compressible CFV (L): compressive, spontaneous, phasic, augmentation FEM (L): compressive, spontaneous, phasic, augmentation POP (L): compressive, spontaneous, phasic, augmentation PTV (L): Compressible GSV (L): Compressible Peroneals (L):Compressible GAS (L): Compressible Findings Study suggests no evidence of DVT or SVT of the bilateral lower extremites. Conclusion Study suggests no evidence of DVT or SVT of the bilateral lower extremites. Electronically signed by : Isaiah Carter MD 02/06/2021 16:50:22
[2021-02-06 13:28] LABS: D-Dimer 1.36 ug/mL (0.0-0.5)
[2021-02-06 13:29] LABS: C-Reactive Protein 319.1 mg/L (0-4)
[2021-02-06 14:51] LABS: Ferritin 2980 ng/ml (11.1-264)
--- NOTE | 2021-02-06 15:29 | XR_ITS ---
PROCEDURE: XR CHEST PORTABLE CLINICAL HISTORY: central line confirmation COMPARISON: CR XR CHEST PORTABLE from 02/05/2021 CR XR CHEST PORTABLE from 02/06/2021 CR XR CHEST PORTABLE from 02/06/2021 FINDINGS: 1553 hours. Left subclavian central venous line has been placed. The tip is in good position in the region the superior vena cava. No evidence of pneumothorax. Endotracheal tube and nasogastric tube are in good position. There is diffuse bilateral alveolar opacification consistent with diffuse bilateral pneumonia No acute bony abnormalities. IMPRESSION: Tubes and lines in good position with diffuse bilateral pneumonia Dictated by: Isaiah Carter MD 02/06/2021 16:29 Isaiah Carter MD in OV 02/06/2021 16:29
--- NOTE | 2021-02-06 15:59 | HMH.GSCON ---
*Admission Date: 02/05/21 *Reason for consult:: Central line placement *History of present illness: Patient is a 60-year-old female from [facility] with history of type 2 diabetes mellitus, hypertension, hyperlipidemia. She had been feeling ill for about 3 days prior to presenting to the emergency department yesterday afternoon with some progressive shortness of breath and cough with significant weakness. She did have an apparent Covid exposure. She has not had Covid immunization. She was admitted for noninvasive ventilatory support. She had clinical deterioration requiring intubation and mechanical ventilation. Review of Systems - Review of Systems Review of systems:: unable to obtain - *Neurologic Reports abnormal walking (due to SOB), Reports abnormal hearing, Reports dizziness, Denies seizure-like activity [facility] History I have reviewed the patient's past medical history: Yes Medical History: Reports:: Chronic Obstructive Pulmonary Disease (COPD), Diabetes Mellitus Type 1, Diabetes Mellitus Type 2, Hyperlipidemia, Hypertension *Have you ever received a pneumonia vaccine?: No *Have you received a flu vaccine this season?: No Other Surgeries: Yes: Tubal Ligation Amputation: No Fractures: No - *Social History Smoking Status: Never smoker Alcohol Intake: never Alcohol Intake Frequency:: other Substance Use Type: denies use *Occupational Status:: employed Housing: house Household Members: spouse *Travel in the last 8 weeks: None Family Hx:: Diabetes, Hypertension, Coronary Artery Disease, Stroke Meds Home Medications Medication Instructions Recorded Confirmed Type glimepiride 4 mg tablet 4 mg PO DAILY tab 10/18/20 02/05/21 History hydroxyzine HCl 25 mg tablet 25 mg PO HS tab 10/18/20 02/06/21 History lisinopril 10 mg tablet 20 mg PO DAILY tab 10/18/20 02/06/21 History loratadine 10 mg tablet 10 mg PO DAILY 10/18/20 02/05/21 History metformin 500 mg tablet,extended 500 mg PO BID tab 10/18/20 02/05/21 History release 24 hr methocarbamol 500 mg tablet 500 mg PO BID tab 10/18/20 02/05/21 History montelukast 10 mg tablet 10 mg PO DAILY tab 10/18/20 02/05/21 History rzzuungdbeku-cnzuunkz-mjwccyo-folic 1 tab PO DAILY 10/18/20 02/05/21 History acid 400 mcg-vit K1 20 mcg tablet rosuvastatin 5 mg tablet 5 mg PO MOWEFR tab 10/18/20 02/06/21 History sulindac 200 mg tablet 200 mg PO BID tab 10/18/20 02/05/21 History empagliflozin 25 mg tablet 25 mg PO DAILY tab 11/29/20 02/05/21 History apple cider vinegar 500 mg tablet 500 mg PO BID 01/10/21 02/06/21 History trazodone 50 mg tablet 50 mg PO HS #60 tab 01/10/21 02/05/21 Rx Duloxetine HCl 60 mg PO DAILY 02/06/21 02/06/21 History Allergies Allergy/AdvReac Type Severity Reaction Status Date / Time meperidine [From DEMEROL] Allergy Mild Verified 01/10/21 08:00 Exam Vital signs and Labs for Last 24 Hours: Temp Pulse Resp BP Pulse Ox 97.7 F 109 H 26 H 111/62 89 L 02/06/21 14:50 02/06/21 14:50 02/06/21 14:50 02/06/21 14:50 02/06/21 14:50 Laboratory Results - last 24 hr 02/05/21 13:45: Procalcitonin 0.455 02/05/21 21:16: POC Glucose 178 H 02/05/21 22:23: Specimen Source r radial, O2 % 100, ABG pH 7.32 L, ABG pCO2 35.1, ABG pO2 64.9 L, ABG HCO3 17.6 L, ABG Total CO2 18.6 L, ABG O2 Saturation 91, ABG Base Excess -8.6 L, Isaiah Test acceptable, Tidal Volume 12/6 02/06/21 05:35: WBC 10.1, RBC 4.05 L, Hgb 12.3 D, Hct 38.5, MCV 95.0, MCH 30.4, MCHC 32.0, RDW 13.1, Plt Count 378, MPV 7.9, Neut % (Auto) 81.6 H, Lymph % (Auto) 13.6, [place] % (Auto) 3.7, Eos % (Auto) 0.1, Baso % (Auto) 1.0, Neut # (Auto) 8.3 H, Lymph # (Auto) 1.4, [place] # (Auto) 0.4, Eos # (Auto) 0.0, Baso # (Auto) 0.1 02/06/21 05:35: Sodium 144, Potassium 5.2 H, Chloride 113 H, Carbon Dioxide 17 L, Anion Gap 19.2 H, BUN 28 H, Creatinine 0.70 D, Estimated Creat Clear 100, Estimated GFR 85, Est GFR ( Amer) 103 D, Glucose 203 H D, Calcium 8.1 L, Total Bilirubin 0.9, AST 99 H D, ALT 25 D, Alkal
--- NOTE | 2021-02-06 16:03 | P.OP_ITS ---
Date of procedure: 02/06/21 Pre-op Diagnosis:: Need for central venous access Post-op Diagnosis:: Same Procedure performed:: Placement of 7 Turkmen nontunneled triple-lumen catheter in left subclavian vein Surgeon:: Patrick Santana MD Anesthesia: local Estimated blood loss (mL): 15 Operative findings:: Unremarkable apparently normal anatomy Operative note:: Consent had been obtained. Patient was positioned and partial Trendelenburg position. Left neck and chest were prepped and draped in the standard surgical fashion. Local anesthetic was infiltrated inferior to the left clavicle medial to the deltopectoral groove. 18-gauge needle catheter was inserted manipulating this posterior to the clavicle. Several passes of the needle were required but ultimately the left subclavian vein was cannulated. There was good return of venous blood. Guidewire was inserted. Needle was removed and a small incision was made at the insertion site. Subcutaneous tissues were dilated. 7 Turkmen triple-lumen catheter was inserted over the guidewire using Seldinger technique. It was secured to the skin at approximately the 15 cm nader. All ports aspi rated and flushed without difficulty. Clean dry sterile dressing was applied. Chest x-ray pending at the time of this dictation. Condition: critical Disposition: no change Complications:: None immediately apparent
--- NOTE | 2021-02-06 16:46 | P.PCN_ITS ---
[facility] Procedure Note Procedure Note:: I was paged to the ICU to intubate patient. Patient has Covid and is fatiguing on BiPAP. I was already familiar with the patient as I admitted her to the emergency department yesterday. She is able to indicate that she does want to be intubated at this time and she desires to be a full code should that be necessary later on. Respiratory staff was available at bedside for assistance. Patient received etomidate 30 mg IV followed by rocuronium 100 mg IV. [place] scope was utilized and cords were directly visualized. 7.5 cuffed ET tube was passed without difficulty. Patient was placed on mechanical ventilator. X-ray was obtained for confirmation and showed ET tube in good placement. Patient tolerated procedure well.
[2021-02-06 17:16] LABS: POC Glucose,Bedside 222 (70-110)
--- NOTE | 2021-02-06 17:25 | PC.NURSE ---
[address] ferguson and received orders for pt to have 2 1000ml lr bolus. if pt bphas not improved,may place pt on levophed drip. if pt levo is greater than 5mcg, pt needs to have a central line placed. Dr santana paged at 1343 in reference to pt being on levophed with drip greater than [address] Santana arrived to start Central line at 1520. received notification from dr santana at approx 1640 that it is ok to use central line. xray also shows that ETT and NG/OG are in good position as well.
--- NOTE | 2021-02-06 18:08 | PC.NURSE ---
attempted to contact Dr gibson at approx 1500 to notify that this pt bp has began to decline, levo is maxed out, sedation is as low as it can go without the pt waking up. office staff states that Dr Gibson has just left and was headed to one of the units. 1520 Dr gibson is on the unit. issues with pt addressed with him. Dr Gibson ordered for pt to be placed on vasopressin, 1 amp bicarb push, stat chest xray.
[2021-02-06 19:37] LABS: POC Glucose,Bedside 349 (70-110)
[2021-02-07] VITALS (35 sets, daily range): BP systolic 72–123; BP diastolic 45–78; PULSE 80–103; RESP 0–28; TEMP 36.7–40.3; O2SAT 95–100; BMI 25.5
--- NOTE | 2021-02-07 06:00 | XR_ITS ---
PROCEDURE INFORMATION: Exam: XR Chest Exam date and time: 02/07/2021 6:00 AM Age: 60 years old Clinical indication: Device placement; Ett placement (vent status); Shortness of breath; Patient HX: Covid; Additional info: Intubated TECHNIQUE: Imaging protocol: XR of the chest. Views: 1 view. COMPARISON: CR XR CHEST PORTABLE 02/06/2021 3:53 PM FINDINGS: Tubes, catheters and devices: Nasogastric tube is in the stomach. The ET tube is in good position. Central venous catheter is in the superior vena cava. Lungs: Stable diffuse bilateral infiltrates are noted. These appear not significantly changed. Pleural spaces: Unremarkable. No pleural effusion. No pneumothorax. Heart/Mediastinum: The heart is upper limits of normal. Bones/joints: Unremarkable. IMPRESSION: Stable diffuse infiltrates.
[2021-02-07 07:34] LABS: Basophils # 0.4 K/mm3 (0-0.2); Basophils % 1.9 % (0.1-2.0); Eosinophils % 0.1 % (0.1-12.0); Hematocrit 41.2 % (37.0-47.0); Hemoglobin 13.7 g/dL (12.2-16.2); Lymphocytes # 1.9 K/mm3 (0.7-4.5); Lymphocytes % 9.6 % (10-50); Mean Corpuscular HGB Conc 33.3 g/dL (31.8-35.4); Mean Corpuscular Hemoglobin 32.7 pg (27.0-31.2); Mean Corpuscular Volume 98.3 fl (81-99); Mean Platelet Volume 7.9 fl (7.4-10.4); Monocytes # 0.6 K/mm3 (0.1-1.0); Monocytes % 3.1 % (1.7-9.3); Neutrophils # 16.4 K/mm3 (1.8-7.8); Neutrophils % 85.4 % (37.0-80.0); Platelet Count 481 K/mm3 (142-424); Red Blood Count 4.19 M/mm3 (4.20-5.40); Red Cell Distribution Width 13.7 % (11.5-17.5); White Blood Count 19.3 K/mm3 (4.8-10.8)
[2021-02-07 07:43] LABS: ABG Base Excess -15.2 mmol/L (-2.4-2.3); ABG HCO3 12.2 mmhg (22.0-26.0); ABG Oxygen Saturation 99 % (90-100); ABG PCO2 29.3 mmhg (35.0-45.0); ABG PH 7.24 mmol/L (7.35-7.45); ABG PO2 141.8 mmhg (80-100); ABG TCO2 13.1 mmhg (23-27)
[2021-02-07 07:44] LABS: MANUAL DIFFERENTIAL MANUAL DIFFERENTIAL (MANUAL DIFF)
[2021-02-07 08:04] LABS: Alanine Aminotransferase 421 U/L (12-78); Albumin Level 2.8 g/dl (3.5-5.0); Albumin/Globulin Ratio 0.8 (1.1-1.8); Alkaline Phosphatase 485 U/L (38-126); Anion Gap 24.2 mEq/L (5-15); Bilirubin,Total 0.8 mg/dl (0.2-1.3); Blood Urea Nitrogen 35 mg/dl (7-17); Calcium 7.4 mg/dl (8.4-10.2); Carbon Dioxide 13 mmol/L (22.0-30.0); Chloride 114 mmol/L (98-107); Creatinine Clearance Estimated 54 mL/min (50-200); Estimated Glomerular Filt Rate 51 ml/min (>60); GFR (African American) 61 ML/MIN (>60); Globulin 3.3 g/dL (1.3-3.2); Glucose 299 mg/dl (74-100); Potassium 5.2 mmoL/L (3.5-5.1); Sodium 146 mmol/L (136-145); Total Protein,Serum 6.1 g/dl (6.3-8.2)
--- NOTE | 2021-02-07 08:09 | HMH.ACPN2 ---
<Netta Serrato - Last Filed: 02/07/21 08:19> Internal Medicine - PN: Subj *Date: 02/07/21 *Time: 08:19 Interval history: Patient had respiratory difficulties yesterday and was intubated and placed on the vent. Settings this morning are tidal volume 440, assist-control of 24, 20 of PEEP, FiO2 of 100%. NG tube is in place. Patient has a Spangler catheter. Nursing reports that patient has been stable through the night. Patient is now receiving neb treatments every 6 hours and is on Zithromax and Rocephin. Also receiving dexamethasone 6 mg IV and on Lovenox daily. Remains sedated with the fentanyl and propolol gtts. She continues with remdesivir. She is also on pressors with vasopressin and norepinephrine. ABGs are pending. CBC with a white blood cell count of 19,300 with a hemoglobin of 13.7 and hematocrit of 41.2. Blood chemistries are pending. A.m. chest x-ray reveals stable with diffuse infiltrates. Exam Vital signs and Labs for Last 24 Hours: Temp Pulse Resp BP Pulse Ox 100.2 F H 97 H 0 L 111/68 99 02/07/21 04:00 02/07/21 06:34 02/07/21 06:53 02/07/21 06:21 02/07/21 06:21 Laboratory Results - last 24 hr 02/06/21 07:33: Specimen Source Left radial, O2 % 100, ABG pH 7.37, ABG pCO2 35.1, ABG pO2 65.5 L, ABG HCO3 19.8 L, ABG Total CO2 20.9 L, ABG O2 Saturation 92, ABG Base Excess -5.5 L, Isaiah Test Acceptable 02/06/21 10:19: Urine Color Yellow, Urine Appearance Sl cloudy, Urine pH 5.5, Ur Specific [place] 1.025, Urine Protein 2+, Urine Glucose (UA) 3+, Urine Ketones 1+, Urine Blood 1+, Urine Nitrate Positive, Urine Bilirubin Negative, Urine Urobilinogen 0.2, Ur Leukocyte Esterase Negative, Urine RBC Occasional, Urine WBC None, Ur Squamous Epith Cells None, Urine Bacteria 1+ 02/06/21 10:45: Specimen Source Right radial, O2 % 100, ABG pH 7.22 L*, ABG pCO2 41.3, ABG pO2 66.2 L, ABG HCO3 16.4 L, ABG Total CO2 17.6 L, ABG O2 Saturation 90, ABG Base Excess -11.4 L, Isaiah Test Patient unable, Vent Rate 24, Tidal Volume 440, PEEP 16 02/06/21 12:41: D-Dimer 1.36 H 02/06/21 12:50: Ferritin 2980 H, C-Reactive Protein 319.1 H 02/06/21 12:51: POC Glucose 222 H 02/06/21 17:46: POC Glucose 349 H* 02/07/21 06:00: WBC 19.3 H D, RBC 4.19 L, Hgb 13.7, Hct 41.2, MCV 98.3, MCH 32.7 H, MCHC 33.3, RDW 13.7, Plt Count 481 H D, MPV 7.9, Neut % (Auto) 85.4 H, Lymph % (Auto) 9.6 L, [place] % (Auto) 3.1, Eos % (Auto) 0.1, Baso % (Auto) 1.9, Neut # (Auto) 16.4 H, Lymph # (Auto) 1.9, [place] # (Auto) 0.6, Eos # (Auto) 0.0, Baso # (Auto) 0.4 H I & O for Last 24 hours: Intake & Output 02/04/21 02/05/21 02/06/21 02/07/21 11:59 11:59 11:59 11:59 Intake Total 5620.081 / 5620.081 Output Total 300 / 318 1451 / 1451 Balance -300 / -318 4169.081 / 4169.081 Weight 164 lb 0.982 oz 138 lb 12.8 oz Microbiology Reports for the Last 24 Hours: Microbiology 02/06/21 10:19 Sputum - Endotracheal Tube Aspirate Gram Stain - Final - Constitutional no acute distress Comments: Sedated - *Routine Respiratory Exam Present: CTA bilaterally (Anteriorly) - *Routine Cardiovascular Exam Present: RRR Comments: Sinus rhythm - *Routine Abdominal Exam Present: soft, normoactive bowel sounds, obese - *Routine Extremities Exam Absent: edema, calf tenderness Assessment and Plan (1) Pneumonia due to COVID-19 virus Status: Acute Category: Medical Code(s): U07.1 - COVID-19; J12.82 - Pneumonia due to coronavirus disease 2019 (2) COVID-19 Status: Acute Category: Medical Code(s): U07.1 - COVID-19 (3) Acute respiratory failure with hypoxia Status: Acute Category: Medical Code(s): J96.01 - Acute respiratory failure with hypoxia (4) Type 2 diabetes mellitus Status: Acute Category: Medical Code(s): E11.9 - Type 2 diabetes mellitus without complications (5) Hypertension Status: Acute Category: Medical Code(s): I10 - Essential (primary) hypertension (6) Hypotension Status: Acute Category: Medical Co
[2021-02-07 08:26] LABS: Oxygen 100 %
[2021-02-07 08:34] LABS: Aspartate Amino Transferase 1263 U/L (14-36)
[2021-02-07 08:40] LABS: PEEP 24; Source L BRACHIAL; Tidal Volume 440; Vent Rate 24
--- NOTE | 2021-02-07 09:23 | DIET.NUTRFU ---
Pt intubated, nutrition consult received for enteral nutrition orders. MAP>60, pt with moderate hypernatremia and hyperkalemia, hepatic enzymes elevated, BG moderate-high- avg. 250. Pt NPO since admission, previous intakes unknown. Healthy body weight. Pt with DM. Pt receiving IVF. Currently on low doses propofol and vasopressin. Upon MD order, recommend initiating continuous tube feeding regimen of Pulmocare 1.5 at 20ml/h and advancing by 10ml/h q 8h as tolerated to goal rate of 44ml/h. Pt currently receiving IVF, recommend minimal water flushes of 30-60ml q 4h, if IVF dc'd water flushes of 195ml q 6h meet additional fluid needs not provided by formula. This regimen provides 1575kcal, 66g protein, 111g cho, 98gfat, and 824ml free water(1600ml total fluids with flushes.) Order put in. Will monitor pt tolerance, meds, fluids to alter regimen as indicated.
--- NOTE | 2021-02-07 09:43 | HMH.PULMPN ---
Internal Medicine - PN: Subj *Date: 02/07/21 *Time: 13:06 Exam - Constitutional Constitutional:: Present: comfortable - HENMT Exam HENMT: Present: normocephalic, atraumatic - Eye Exam Eyes:: Present: normal appearance both eyes and related structures - Neck Exam Neck:: Present: normal visual inspection - Respiratory Exam Respiratory:: Present: decreased breath sounds, crackles - Cardiovascular Exam Cardiac:: Present: S1, S2 - GI Exam GI:: Present: soft - Skin Exam Skin: Present: warm - Neurological Exam Intubated and sedated - Extremities Exam Extremities: Present: no cyanosis, no clubbing, edema Assessment and Plan (1) Pneumonia due to COVID-19 virus Status: Acute Category: Medical Code(s): U07.1 - COVID-19; J12.82 - Pneumonia due to coronavirus disease 2019 (2) COVID-19 Status: Acute Category: Medical Code(s): U07.1 - COVID-19 (3) Acute respiratory failure with hypoxia Status: Acute Category: Medical Code(s): J96.01 - Acute respiratory failure with hypoxia (4) Type 2 diabetes mellitus Status: Acute Category: Medical Code(s): E11.9 - Type 2 diabetes mellitus without complications (5) Hypertension Status: Acute Category: Medical Code(s): I10 - Essential (primary) hypertension (6) Hypotension Status: Acute Category: Medical Code(s): I95.9 - Hypotension, unspecified (7) Elevated LFTs Status: Acute Category: Medical Code(s): R79.89 - Other specified abnormal findings of blood chemistry - Assessment and plan all Dx Assessment and Plan for all problems:: #Acute hypoxic respiratory failure: #COVID-19 pneumonia: 60-year-old no prior respiratory complaints no significant smoking history, yet to be vaccinated presented to the hospital with worsening respiratory distress and found to be COVID-19 positive. Patient needing noninvasive ventilator support to maintain her oxygen saturations patient is morning appeared to be in respiratory distress and after extensive discussions with the patient the plan was made to intubate her on mechanical ventilatory support. Blood gas from this morning prior to ventilation showed a pH of 7.37 with a PCO2 35 and PO2 of 65.5 on 100% FiO2. Chest x-ray admission bilateral pulmonary infiltrates. Plan: -Continue mechanical ventilatory support - Continue AnalgoSedation with Propofol and Fentanyl with CPOT gal less than or euqal to 2 and RASS goal of 0 to 1 (Deep sedation) - VAP bundle Elevate head of the bed at 30 to 45 degrees Oral care with chlorhexidne GI ulcer prophylaxis - Famotidine 20mg IV BID Chemical DVT prophylaxis Intubated and sedated. ABG continue to show significantly worsening metabolic acidosis. Oxygenation improving. Renal function slightly worsened from yesterday. We will closely monitor. Continue remdesivir along with dexamethasone for COVID-19 pneumonia. Will discontinue barcitinib given transaminitis. Continue azithromycin and change ceftriaxone to Cefepime. Tracheal aspirate no cells no organisms. F/U nasal MRSA PCR. D-dimer elevated 1.36. Lower extremity Doppler negative for DVT. No CTA performed. We will closely monitor. -Hemodynamically unstable after intubation and sedation. Patient currently receiving norepinephrine and epinephrine vasopressin to maintain her map goal at 70 and above. We will closely monitor. Will escalate antibiotics to cefepime. We will also continue bicarb drip. Follow with echocardiogram -Abdomen soft and nontender. Worsening transaminitis. Will recommend performing right upper quadrant ultrasound along with hepatitis panel and transaminitis evaluation by primary team. -Renal function worsening noted to have hyperkalemia, managed by primary team. We will closely monitor. Plan: -Continue mechanical ventilatory support. DuoNebs every 6 scheduled -Continue vasopressor support for her shock to maintain a map goal of 70 and above -Continue remdesivir
--- NOTE | 2021-02-07 13:04 | CA_ITS ---
APPROVED REPORT EXAM: Comprehensive 2D, Doppler, and color-flow Echocardiogram Inside [employer] Advisor: Maye Zayas RVT Ht: 5 ft 1 in Wt: 138lbs BSA: 1.61 BP: 107/69 mmHg Indications: COVID PNEUMONIA,PT INTUBATED,DM,HX HTN,HYPOTESION NOW 2D Dimensions IVSd 1.11 cm F: 0.6-1.0 LA Volume 27.70 mL PWd 0.80 cm F: 0.6 - 1.0 LA Volume Index 17.20 mL/m2 (M/F) 16-34 LVDd 4.80 cm F: 3.9 - 5.3 LVOT 1.91 cm (M/F) 1.5-2.5 M-Mode Dimensions RVDd 1.97 cm (0.9-2.6) LA Diam 3.15 cm (1.9-4.0) LVDd 4.52 cm (3.5-5.7) Ao Diam 2.67 cm (2.0-3.7) LVDs 3.49 cm (3.5-5.7) IVSd 0.83 cm (0.6-1.1) PWd 0.64 cm (0.6-1.1) EF (Teich) 26.00% FS 22.80% EDV (Teich) 93.40 mL TAPSE 1.57 (<1.7) ESV (Teich) 50.50 mL LV Diastology E Decel Time 150.00 (160-240 msec) E/A Ratio 0.7 MED E' 5.10 (< 7 cm/sec) E'/MED E' Ratio 12.43 (>14) LAT E' 7.20 (<10 cm/sec) E/LAT E' Ratio 8.81 (>14) Mitral Valve MV E Max Colin. 63.00 (40-130 cm/s) MV A Velocity 87.00 (40-130 cm/s) E/A Ratio 0.73 MV Decel. Time 150.00 (160-240 ms) MV PHT 44.00 ms Pulmonary Valve PV Peak Velocity 69.00 (50-150 cm/s) Tricuspid Valve TR P. Velocity 272.00 cm/s RAP Estimate 10.00 mmHg RVSP 39.70 mmHg Left Ventricle Left atrium is mildly enlarged, left ventricle is mildly dilated, there is severe reduced left ventricular systolic function, visually estimated ejection fraction 25%, there is marked hypokinesis involving mid to distal septum, anterior, anterior apical and apical wall. Diastolic parameters consistent of impaired LV relaxation, Doppler evidence of low cardiac output state is also seen. Right Ventricle Right atrium and right ventricle are mildly enlarged, contractility of the right ventricle is mildly reduced. Aortic Valve Aortic valve is minimally thickened and fibrosed, there is no aortic stenosis or aortic insufficiency. Mitral Valve Mitral valve is grossly normal, there is trace mitral regurgitation. Tricuspid Valve Tricuspid grossly normal, there is trace tricuspid regurgitation, calculated right ventricular systolic pressure is 40 mmHg. Pulmonic Valve Pulmonic valve is poorly visualized. Great Vessels Aortic root is normal size. Inferior vena cava is dilated without significant inspiratory collapse. Pericardium No significant pericardial effusion noted. Conclusion 1. Mildly enlarged left atrium, mildly dilated left ventricle, severely reduced left ventricular systolic function, visually estimated ejection fraction 45%, with multiple segmental wall motion abnormality described above, Doppler evidence of low cardiac output state is seen. 2. Mildly enlarged right ventricle with reduced contractility. 3. Trace mitral and tricuspid regurgitation, calculated right ventricular systolic pressure is 40 mmHg. 4. No significant pericardial effusion noted. Electronically signed by : Dean Go MD 02/08/2021 16:06:05
[2021-02-07 14:53] LABS: Eosinophils % 2 % (0-3); Lymphocytes % 8 % (10-50); Monocytes % 5 % (2-9); Neutrophils % 82 % (42-76); Platelet Estimate Slight Increase; Total Cells Counted 100
--- NOTE | 2021-02-07 16:03 | PC.NURSE ---
Cardiology notified of consult
[2021-02-07 17:09] LABS: VBG Base Excess -13.7 mmol/L (-2.4-2.3); VBG HCO3 12.6 mmol/L (23-30); VBG Oxygen Saturation 89.2 % (50-70); VBG PCO2 25.7 mmol/L (35-51); VBG PH 7.31 mmol/L (7.31-7.41); VBG PO2 58.6 mmol/L (28-40); VBG Total CO2 13.4 mmol/L (23-27)
--- NOTE | 2021-02-07 18:37 | PC.NURSE ---
Pt has been hypotensive on and off t/o the shift. She remains on levophed and vasopressin. She received a 1L fluid bolus this am and started on an epi gtt for approx [address] Gibson stopped the epi gtt during morning rounds. He ordered and echo as well. Dr Gibsonand Dr Burt both aware of esults of 15-20% EF. CArdiology consult ordered. Lungs have crackles and are diminished throughout. Her burt is to bedside draining clear, yellow urine. Bowel sounds are hypotensive. Oral care provided and pt turned q2hr. Family updated on plan of care.
[2021-02-07 20:07] LABS: POC Glucose,Bedside 323 (70-110)
[2021-02-07 20:07] LABS: POC Glucose,Bedside 274 (70-110)
[2021-02-07 20:07] LABS: POC Glucose,Bedside 432 (70-110)
[2021-02-07 20:09] LABS: Basophils # 0.3 K/mm3 (0-0.2); Basophils % 2.3 % (0.1-2.0); Eosinophils % 0.1 % (0.1-12.0); Hematocrit 39.3 % (37.0-47.0); Hemoglobin 13.3 g/dL (12.2-16.2); Lymphocytes # 1.4 K/mm3 (0.7-4.5); Lymphocytes % 9.3 % (10-50); Mean Corpuscular HGB Conc 33.9 g/dL (31.8-35.4); Mean Corpuscular Hemoglobin 33.2 pg (27.0-31.2); Mean Corpuscular Volume 97.8 fl (81-99); Mean Platelet Volume 7.8 fl (7.4-10.4); Monocytes # 0.5 K/mm3 (0.1-1.0); Monocytes % 3.3 % (1.7-9.3); Neutrophils # 12.3 K/mm3 (1.8-7.8); Platelet Count 244 K/mm3 (142-424); Red Blood Count 4.02 M/mm3 (4.20-5.40); Red Cell Distribution Width 13.6 % (11.5-17.5); White Blood Count 14.5 K/mm3 (4.8-10.8)
[2021-02-07 20:10] LABS: MANUAL DIFFERENTIAL MANUAL DIFFERENTIAL (MANUAL DIFF)
[2021-02-07 20:34] LABS: Eosinophils % 1 % (0-3); Lymphocytes % 9 % (10-50); Monocytes % 3 % (2-9); Neutrophils % 87 % (42-76); Platelet Estimate Normal; RBC Morphology Normal; Total Cells Counted 100
[2021-02-07 21:21] LABS: POC Glucose,Bedside 245 (70-110)
[2021-02-08] VITALS (35 sets, daily range): BP systolic 92–125; BP diastolic 54–83; PULSE 79–124; RESP 21–26; TEMP 35.8–39; O2SAT 90–100; BMI 26.4
--- NOTE | 2021-02-08 02:59 | PC.NURSE ---
She continues to be intubated and sedated. She has been febrile and has received PRN acetaminophen and ice packs in groin. HOB elevated 30 degrees. Her extremities are cool to touch.
[2021-02-08 04:45] LABS: POC Glucose,Bedside 247 (70-110)
--- NOTE | 2021-02-08 06:00 | XR_ITS ---
PROCEDURE INFORMATION: Exam: XR Chest Exam date and time: 02/08/2021 6:00 AM Clinical indication: Device placement; Ett placement (vent status); Patient HX: Covid; Additional info: Intubated TECHNIQUE: Imaging protocol: XR of the chest. Views: 1 view. COMPARISON: No relevant prior studies available. FINDINGS: Tubes, catheters and devices: There is an endotracheal tube in place, the tip which projects 4.6 cm above the david. Nasogastric tube traverses the esophagus and terminates below the bottom of the radiograph. Lungs: There are patchy airspace opacities throughout both lungs, mostly in the right lung. There is improved aeration of the left upper lobe. Pleural spaces: Unremarkable. No pleural effusion. No pneumothorax. Heart/Mediastinum: Unremarkable. No cardiomegaly. Bones/joints: Unremarkable. IMPRESSION: No significant change in multifocal pneumonia.
[2021-02-08 07:42] LABS: Albumin Level 2.5 g/dl (3.5-5.0); Albumin/Globulin Ratio 0.9 (1.1-1.8); Alkaline Phosphatase 479 U/L (38-126); Anion Gap 24.7 mEq/L (5-15); Bilirubin,Total 1.7 mg/dl (0.2-1.3); Blood Urea Nitrogen 48 mg/dl (7-17); Calcium 6.5 mg/dl (8.4-10.2); Carbon Dioxide 16 mmol/L (22.0-30.0); Chloride 115 mmol/L (98-107); Creatinine Clearance Estimated 36 mL/min (50-200); Estimated Glomerular Filt Rate 31 ml/min (>60); GFR (African American) 37 ML/MIN (>60); Globulin 2.8 g/dL (1.3-3.2); Glucose 245 mg/dl (74-100); Potassium 4.7 mmoL/L (3.5-5.1); Total Protein,Serum 5.3 g/dl (6.3-8.2)
[2021-02-08 07:46] LABS: ABG Base Excess -12.9 mmol/L (-2.4-2.3); ABG HCO3 14.1 mmhg (22.0-26.0); ABG Oxygen Saturation 92 % (90-100); ABG PCO2 31.9 mmhg (35.0-45.0); ABG PH 7.26 mmol/L (7.35-7.45); ABG PO2 69.3 mmhg (80-100); ABG TCO2 15.1 mmhg (23-27)
[2021-02-08 07:48] LABS: Oxygen 100 %; PEEP 18; Tidal Volume 440; Vent Rate 24
[2021-02-08 07:49] LABS: Allen's Test Patient Unable; Source Left Brachial
[2021-02-08 07:54] LABS: Sodium 151 mmol/L (136-145)
[2021-02-08 08:20] LABS: Alanine Aminotransferase 2841 U/L (12-78)
[2021-02-08 08:29] LABS: Aspartate Amino Transferase 9209 U/L (14-36)
--- NOTE | 2021-02-08 08:41 | HMH.ACPN2 ---
<Maribell Gaitan - Last Filed: 02/08/21 08:41> Internal Medicine - PN: Subj *Date: 02/08/21 *Time: 08:41 Interval history: Nursing states patient has been stable. They are getting ready to turn up her PEEP. Exam Vital signs and Labs for Last 24 Hours: Temp Pulse Resp BP Pulse Ox 96.9 F L 84 24 104/70 L 92 L 02/08/21 06:23 02/08/21 06:23 02/08/21 06:23 02/08/21 06:23 02/08/21 06:23 Laboratory Results - last 24 hr 02/06/21 20:53: POC Glucose 432 H* 02/07/21 04:12: POC Glucose 323 H* 02/07/21 06:00: Specimen Source L brachial, O2 % 100, ABG pH 7.24 L*, ABG pCO2 29.3 L, ABG pO2 141.8 H, ABG HCO3 12.2 L, ABG Total CO2 13.1 L, ABG O2 Saturation 99, ABG Base Excess -15.2 L, Vent Rate 24, Tidal Volume 440, PEEP 24 02/07/21 06:00: Total Counted 100, Neutrophils % (Manual) 82 H, Lymphocytes % (Manual) 8 L, Atypical Lymphs % 1.0, Monocytes % (Manual) 5, Eosinophils % (Manual) 2, Basophils % (Manual) 2.0 H, Platelet Estimate Slight increase 02/07/21 16:01: VBG pH 7.31, VBG pCO2 25.7 L, VBG pO2 58.6 H, VBG HCO3 12.6 L, VBG Total CO2 13.4 L, VBG O2 Saturation 89.2 H, VBG Base Excess -13.7 L 02/07/21 17:37: POC Glucose 274 H 02/07/21 20:00: WBC 14.5 H, RBC 4.02 L, Hgb 13.3, Hct 39.3, MCV 97.8, MCH 33.2 H, MCHC 33.9, RDW 13.6, Plt Count 244 D, MPV 7.8, Neut % (Auto) 85.0 H, Lymph % (Auto) 9.3 L, [place] % (Auto) 3.3, Eos % (Auto) 0.1, Baso % (Auto) 2.3 H, Neut # (Auto) 12.3 H, Lymph # (Auto) 1.4, [place] # (Auto) 0.5, Eos # (Auto) 0.0, Baso # (Auto) 0.3 H, Total Counted 100, Neutrophils % (Manual) 87 H, Lymphocytes % (Manual) 9 L, Monocytes % (Manual) 3, Eosinophils % (Manual) 1, Platelet Estimate Normal, RBC Morphology Normal 02/07/21 20:31: POC Glucose 245 H 02/08/21 04:39: POC Glucose 247 H 02/08/21 06:15: Sodium 151 H*, Potassium 4.7, Chloride 115 H, Carbon Dioxide 16 L, Anion Gap 24.7 H, BUN 48 H D, Creatinine 1.70 H D, Estimated Creat Clear 36, Estimated GFR 31 L, Est GFR ( Amer) 37 L D, Glucose 245 H, Calcium 6.5 L, Total Bilirubin 1.7 H, AST 9209 H* D, ALT 2841 H*, Alkaline Phosphatase 479 H, Total Protein 5.3 L, Albumin 2.5 L D, Globulin 2.8, Albumin/Globulin Ratio 0.9 L 02/08/21 07:06: Specimen Source Left brachial, O2 % 100, ABG pH 7.26 L, ABG pCO2 31.9 L, ABG pO2 69.3 L, ABG HCO3 14.1 L, ABG Total CO2 15.1 L, ABG O2 Saturation 92, ABG Base Excess -12.9 L, Isaiah Test Patient unable, Vent Rate 24, Tidal Volume 440, PEEP 18 I & O for Last 24 hours: Intake & Output 02/05/21 02/06/21 02/07/21 02/08/21 11:59 11:59 11:59 11:59 Intake Total 7001.081 / 7384.081 4378.372 / 4378.372 Output Total 300 / 318 1751 / 1831 1320 / 1320 Balance -300 / -318 5250.081 / 5553.081 3058.372 / 3058.372 Weight 164 lb 0.982 oz 138 lb 12.8 oz 143 lb 8 oz Microbiology Reports for the Last 24 Hours: Microbiology 02/06/21 10:19 Sputum - Endotracheal Tube Aspirate Gram Stain - Final 02/06/21 10:19 Sputum - Endotracheal Tube Aspirate Sputum Culture - Preliminary Gram Positive Cocci 02/06/21 10:46 Anus CRE Surveillance Culture - Final 02/05/21 20:25 Blood Blood Culture - Preliminary NO GROWTH AFTER 48 HOURS 02/05/21 20:20 Blood Blood Culture - Preliminary NO GROWTH AFTER 48 HOURS - Constitutional no acute distress - *Routine Respiratory Exam Present: patient mechanically ventilated - *Routine Cardiovascular Exam Present: RRR - *Routine Abdominal Exam Present: soft, normoactive bowel sounds. Absent: tenderness - *Routine Extremities Exam Absent: cyanosis, clubbing, edema - *Routine Skin Exam Present: warm. Absent: rash - *Routine Neurological Exam sedated Assessment and Plan (1) Pneumonia due to COVID-19 virus Status: Acute Category: Medical Code(s): U07.1 - COVID-19; J12.82 - Pneumonia due to coronavirus disease 2019 (2) COVID-19 Status: Acute Category: Medical Code(s): U07.1 - COVID-19 (3) Acute
--- NOTE | 2021-02-08 09:46 | HMH.PULMPN ---
Internal Medicine - PN: Subj *Date: 02/08/21 *Time: 14:21 Interval history: No acute respiratory events overnight. Exam - HENMT Exam HENMT: Present: normocephalic, atraumatic - Eye Exam Eyes:: Present: normal appearance both eyes and related structures - Neck Exam Neck:: Present: normal visual inspection - Respiratory Exam Respiratory:: Present: respiratory distress, crackles, rhonchi - Cardiovascular Exam Cardiac:: Present: S1, S2 - GI Exam GI:: Present: soft - Skin Exam Skin: Absent: warm - Neurological Exam Intubated and sedated - Extremities Exam Extremities: Present: no cyanosis, no clubbing, edema Assessment and Plan (1) Pneumonia due to COVID-19 virus Status: Acute Category: Medical Code(s): U07.1 - COVID-19; J12.82 - Pneumonia due to coronavirus disease 2019 (2) COVID-19 Status: Acute Category: Medical Code(s): U07.1 - COVID-19 (3) Acute respiratory failure with hypoxia Status: Acute Category: Medical Code(s): J96.01 - Acute respiratory failure with hypoxia (4) Type 2 diabetes mellitus Status: Acute Category: Medical Code(s): E11.9 - Type 2 diabetes mellitus without complications (5) Hypertension Status: Acute Category: Medical Code(s): I10 - Essential (primary) hypertension (6) Hypotension Status: Acute Category: Medical Code(s): I95.9 - Hypotension, unspecified (7) Elevated LFTs Status: Acute Category: Medical Code(s): R79.89 - Other specified abnormal findings of blood chemistry - Assessment and plan all Dx Assessment and Plan for all problems:: #Acute hypoxic respiratory failure: #COVID-19 pneumonia: 60-year-old no prior respiratory complaints no significant smoking history, yet to be vaccinated presented to the hospital with worsening respiratory distress and found to be COVID-19 positive. Patient needing noninvasive ventilator support to maintain her oxygen saturations patient is morning appeared to be in respiratory distress and after extensive discussions with the patient the plan was made to intubate her on mechanical ventilatory support. Blood gas from this morning prior to ventilation showed a pH of 7.37 with a PCO2 35 and PO2 of 65.5 on 100% FiO2. Chest x-ray admission bilateral pulmonary infiltrates. Overall patient clinical status critical and continued to worsen her COVID-19 pneumonia and hypoxic respiratory failure is complicated by her severe shock congestive heart failure transaminitis and worsening BRIGITTE. We will closely monitor. Plan: -Continue mechanical ventilatory support - Continue AnalgoSedation with Propofol and Fentanyl with CPOT gal less than or euqal to 2 and RASS goal of 0 to 1 (Deep sedation) - VAP bundle Elevate head of the bed at 30 to 45 degrees Oral care with chlorhexidne GI ulcer prophylaxis - Famotidine 20mg IV BID Chemical DVT prophylaxis Intubated and sedated. ABG continue to show metabolic acidosis. Oxygenation slightly decreased from yesterday with PO2 69.3, PEEP increased to 20. Sputum is showing gram-positive cocci, will continue cefepime and azithromycin and will start vancomycin. Will initiate stress dose steroids Remdesivir and Barcitinib were discontinued owing to transaminitis and worsening renal function F/U nasal MRSA PCR. D-dimer elevated 1.36. Lower extremity Doppler negative for DVT. No CTA performed. We will closely monitor. Hemodynamically unstable after intubation and sedation. Blood cultures no growth 48 hours from 02/05. Endotracheal aspirate growing gram-positive cocci. Patient currently receiving norepinephrine vasopressin and milrinone to maintain her map goal at 70 and above. We will closely monitor. We will also continue bicarb drip. Echocardiogram showed severely reduced EF. -Abdomen soft and nontender. Worsening transaminitis. Will recommend performing right upper quadrant ultrasound along with hepatitis panel and transaminitis evaluation by rajesh
[2021-02-08 10:11] LABS: POC Glucose,Bedside 244 (70-110)
--- NOTE | 2021-02-08 10:58 | HMH.CNCARD ---
History of Present Illness Consult date: 02/08/21 Requesting physician: Jay Gibson Consult reason: shortness of breath Chief complaint: Cardiomyopathy, COVID Additional Medical History:: 1. HTN 2. HLD 3. DM, type 2 4. Severe cardiomyopathy A. Echo, 01/2021 5. Normal Reji myoview, 10/2018, EF 65% History of present illness: Ms. Hansen is a 60-year old female with a history of type 2 diabetes mellitus, cervical disc disease, hypertension, hyperlipidemia, and allergic rhinitis who has been sick for the last 3 days. She presented to the emergency room due to. Progressive shortness of breath. She states she has also had a cough but denies a fever. She states that she got so weak that she could not even see. She also states that she has had some diarrhea but no vomiting. She has a minimal p.o. intake for the last 3 days. Noted to that she has been to [place] recently and exposed to Covid. She has not had Covid immunization. Upon arrival to the emergency room she was in acute distress. Initially she was placed on a Ventimask due to O2 sats being 40%. This improved her saturation but she was still suboptimal. She was thus placed on BiPAP with an increase in her O2 sats greater than 90.. Chest x-ray has not been read as yet. Laboratory data revealed a white blood cell count of 10,000 with a hemoglobin of 14.4 and hematocrit of 42.9. Blood chemistries show sodium of 141 potassium of 4.4 with a BUN of 29 and creatinine 0.9. Blood sugar is 320. Liver function studies showed an elevated AST at 75 and a normal ALT at 35. Alkaline phosphatase is also elevated at 137 troponin I 0.01. BNP is 275. Covid PCR test was detected. Flu a and B were negative. At time of this exam patient is comfortable. She states she is breathing better. She would like to have the mask off. She is thirsty and was assisted with a drink of water. She denies chest pain and abdominal pain. She states she does have a periodic nonproductive cough. The above H&P per Netta Serrato APRN for Dr. Burt on admission. Pt's pulmonary status progressively worsened and now she is sedated, intubated and on [facility] ventilation with pressor support. Echo was obtained yesterday revealing severely reduced EF. Cardiology consulted for further evaluation. Initial troponin was normal. EKG on admission is sinus with NSSTTW abnormalities. [facility] History Medical History: Reports:: Chronic Obstructive Pulmonary Disease (COPD), Diabetes Mellitus Type 1, Diabetes Mellitus Type 2, Hyperlipidemia, Hypertension *Have you ever received a pneumonia vaccine?: No *Have you received a flu vaccine this season?: No Other Surgeries: Yes: Tubal Ligation Amputation: No Fractures: No - *Social History Smoking Status: Never smoker Alcohol Intake: never Alcohol Intake Frequency:: other Substance Use Type: denies use *Occupational Status:: employed Housing: house Household Members: spouse *Travel in the last 8 weeks: None Family Hx:: Diabetes, Hypertension, Coronary Artery Disease, Stroke Meds Home Medications Medication Instructions Recorded Confirmed Type glimepiride 4 mg tablet 4 mg PO DAILY tab 10/18/20 02/05/21 History hydroxyzine HCl 25 mg tablet 25 mg PO HS tab 10/18/20 02/06/21 History lisinopril 10 mg tablet 20 mg PO DAILY tab 10/18/20 02/06/21 History loratadine 10 mg tablet 10 mg PO DAILY 10/18/20 02/05/21 History metformin 500 mg tablet,extended 500 mg PO BID tab 10/18/20 02/05/21 History release 24 hr methocarbamol 500 mg tablet 500 mg PO BID tab 10/18/20 02/05/21 History montelukast 10 mg tablet 10 mg PO DAILY tab 10/18/20 02/05/21 History edsmpaiovtxn-ghsquion-bqvjnih-folic 1 tab PO DAILY 10/18/20 02/05/21 History acid 400 mcg-vit K1 20 mcg tablet rosuvastatin 5 mg tablet 5 mg PO MOWEFR tab 10/18/20 02/06/21 History sulindac 200 mg tablet 200 mg PO BID tab 10/18/20 02/05/21 History empagliflozin 25 mg tablet 25 mg PO DAILY tab 11/29/20 02/05/21 History
--- NOTE | 2021-02-08 11:05 | PC.NURSE ---
Levo turned down to 25 mcg/min
--- NOTE | 2021-02-08 11:10 | US_ITS ---
PROCEDURE: US ABDOMEN LIMITED CLINICAL INDICATION: Elevated LFT's COMPARISON: CR XR CHEST PORTABLE from 02/08/2021 FINDINGS: PANCREAS: Unremarkable. No obvious mass or abnormal fluid collection. No ductal dilatation LIVER: Diffuse increased echogenicity of the liver with poor through transmission of sound consistent with hepatic steatosis. No focal liver lesion demonstrated. There is appropriate direction of blood flow within non dilated portal vein. There is a small amount of perihepatic fluid and a small right pleural effusion. RIGHT KIDNEY: Unremarkable. Normal size and echogenicity. No hydronephrosis GALLBLADDER: Small amount of pericholecystic fluid is noted. No gallbladder wall thickening or gallstones apparent. Common bile duct is normal at 3 mm. IMPRESSION: Fatty liver. Small amount of perihepatic and pericholecystic fluid with small right pleural effusion otherwise negative Dictated by: Isaiah Carter MD 02/08/2021 14:34 Isaiah Carter MD in OV 02/08/2021 14:34
--- NOTE | 2021-02-08 12:32 | HMH.PHACONS ---
- Pharmacy Consult Date: 02/08/21 Time: 12:32 Referring provider: DR. MORRISON Reason for Consult:: VANCOMYCIN DOSING Allergies and ADEs:: Allergies Allergy/AdvReac Type Severity Reaction Status Date / Time meperidine [From DEMEROL] Allergy Mild Verified 01/10/21 08:00 Home Medications:: Home Medications Medication Instructions Recorded Confirmed Type glimepiride 4 mg tablet 4 mg PO DAILY tab 10/18/20 02/05/21 History hydroxyzine HCl 25 mg tablet 25 mg PO HS tab 10/18/20 02/06/21 History lisinopril 10 mg tablet 20 mg PO DAILY tab 10/18/20 02/06/21 History loratadine 10 mg tablet 10 mg PO DAILY 10/18/20 02/05/21 History metformin 500 mg tablet,extended 500 mg PO BID tab 10/18/20 02/05/21 History release 24 hr methocarbamol 500 mg tablet 500 mg PO BID tab 10/18/20 02/05/21 History montelukast 10 mg tablet 10 mg PO DAILY tab 10/18/20 02/05/21 History owztxczabzfy-gmcdxjpc-reacaxl-folic 1 tab PO DAILY 10/18/20 02/05/21 History acid 400 mcg-vit K1 20 mcg tablet rosuvastatin 5 mg tablet 5 mg PO MOWEFR tab 10/18/20 02/06/21 History sulindac 200 mg tablet 200 mg PO BID tab 10/18/20 02/05/21 History empagliflozin 25 mg tablet 25 mg PO DAILY tab 11/29/20 02/05/21 History apple cider vinegar 500 mg tablet 500 mg PO BID 01/10/21 02/06/21 History trazodone 50 mg tablet 50 mg PO HS #60 tab 01/10/21 02/05/21 Rx Duloxetine HCl 60 mg PO DAILY 02/06/21 02/06/21 History Height: 1.57 m Weight: 65.091 kg Laboratory Results:: Laboratory Results - last 24 hr 02/06/21 20:53: POC Glucose 432 H* 02/07/21 04:12: POC Glucose 323 H* 02/07/21 06:00: Total Counted 100, Neutrophils % (Manual) 82 H, Lymphocytes % (Manual) 8 L, Atypical Lymphs % 1.0, Monocytes % (Manual) 5, Eosinophils % (Manual) 2, Basophils % (Manual) 2.0 H, Platelet Estimate Slight increase 02/07/21 16:01: VBG pH 7.31, VBG pCO2 25.7 L, VBG pO2 58.6 H, VBG HCO3 12.6 L, VBG Total CO2 13.4 L, VBG O2 Saturation 89.2 H, VBG Base Excess -13.7 L 02/07/21 17:37: POC Glucose 274 H 02/07/21 20:00: WBC 14.5 H, RBC 4.02 L, Hgb 13.3, Hct 39.3, MCV 97.8, MCH 33.2 H, MCHC 33.9, RDW 13.6, Plt Count 244 D, MPV 7.8, Neut % (Auto) 85.0 H, Lymph % (Auto) 9.3 L, Bertie % (Auto) 3.3, Eos % (Auto) 0.1, Baso % (Auto) 2.3 H, Neut # (Auto) 12.3 H, Lymph # (Auto) 1.4, Bertie # (Auto) 0.5, Eos # (Auto) 0.0, Baso # (Auto) 0.3 H, Total Counted 100, Neutrophils % (Manual) 87 H, Lymphocytes % (Manual) 9 L, Monocytes % (Manual) 3, Eosinophils % (Manual) 1, Platelet Estimate Normal, RBC Morphology Normal 02/07/21 20:31: POC Glucose 245 H 02/08/21 04:39: POC Glucose 247 H 02/08/21 06:15: Sodium 151 H*, Potassium 4.7, Chloride 115 H, Carbon Dioxide 16 L, Anion Gap 24.7 H, BUN 48 H D, Creatinine 1.70 H D, Estimated Creat Clear 36, Estimated GFR 31 L, Est GFR ( Amer) 37 L D, Glucose 245 H, Calcium 6.5 L, Total Bilirubin 1.7 H, AST 9209 H* D, ALT 2841 H*, Alkaline Phosphatase 479 H, Total Protein 5.3 L, Albumin 2.5 L D, Globulin 2.8, Albumin/Globulin Ratio 0.9 L 02/08/21 07:06: Specimen Source Left brachial, O2 % 100, ABG pH 7.26 L, ABG pCO2 31.9 L, ABG pO2 69.3 L, ABG HCO3 14.1 L, ABG Total CO2 15.1 L, ABG O2 Saturation 92, ABG Base Excess -12.9 L, Isaiah Test Patient unable, Vent Rate 24, Tidal Volume 440, PEEP 18 02/08/21 09:59: POC Glucose 244 H Medical History: Reports:: Chronic Obstructive Pulmonary Disease (COPD), Diabetes Mellitus Type 1, Diabetes Mellitus Type 2, Hyperlipidemia, Hypertension Assessment and Plan (1) Pneumonia due to COVID-19 virus Status: Acute Category: Medical Code(s): U07.1 - COVID-19; J12.82 - Pneumonia due to coronavirus disease 2019 (2) COVID-19 Status: Acute Category: Medical Code(s): U07.1 - COVID-19 (3) Acute respiratory failure with hypoxia Status: Acute Category: Medical Code(s): J96.01 - Acute respiratory failure with hypoxia (4) Type 2 diabetes mellitus Status: Acute Category: Medical Code(s): E11.9 - Type 2 diabetes mellitus without complication
--- NOTE | 2021-02-08 14:42 | PC.NURSE ---
Lungs diminished and with crackles. Bowel sounds hypo x4. She has been turned q2hr and oral care provided. Small bm today. Her burt is bedside draining clear yellow urine. +1 generalized edema. Temp of 100.8 rectally, tylenol administered. She has been NSR/ST on telemetry. Some mottling noted to BLE. Tube feeds held per Dr Gibson. Family updated on plan of care.
[2021-02-08 15:34] LABS: POC Glucose,Bedside 212 (70-110)
[2021-02-08 20:06] LABS: POC Glucose,Bedside 206 (70-110)
--- NOTE | 2021-02-08 21:20 | PC.NURSE ---
RAPID RED CALLED, DELI CUTTER SLICER SINUS, NO PULSE PRESENT, CPR INITIATED,
[2021-02-08 21:33] LABS: POC Glucose,Bedside 170 (70-110)
--- NOTE | 2021-02-08 23:11 | PC.NURSE ---
2128-Dr. Burt notified of rapid red and current code in process. 2123-Attempt to contact Gary Hansen. 2129-Spoke with Gary Hansen. He was notified about pt's condition and that rapid response had been called and code blue in process. 2139-Gary Hansen notified of the result of code and he stated he wanted to speak with his family. 2147-KAILYN notified. Spoke with Denise Valverde and she stated it was okay to release her body. Case # [id number]. 2299-Gary Hansen contacted and he stated he wanted her body released to [facility]. 2304-[facility] notified.
--- NOTE | 2021-02-08 23:14 | PC.NURSE ---
Late note: Pt has been febrile. She was given PRN acetaminophen by previous shift. Ice packs placed on groin. Generalized edema. F/c patent with yellow, clear urine. At 2118 she was noted to have a heart rate of 195. Rapid response red called and patient assessed and noted to not have a pulse and compressions were started. See recorder's notes
--- NOTE | 2021-02-08 23:51 | HMH.DEATH ---
Pronouncement Note - Date and Time of Date of : 02/08/21 Time of : 21:36 - PCOD Preliminary cause of : Acute respiratory failure (due to covid-19) - Additional Data Confirmation of : no pulse, no heart sounds Attending physician: Senthil Burt MD Was code activated?: Yes Organ bank notified?: Yes
--- NOTE | 2021-02-08 23:56 | HMH.RR ---
Acute Rapid Response Note - Subjective Date Responded: 02/08/21 Time Responded: 21:25 - Objective Findings: Vital Signs - Last 4 Hours Temperature 101.9 F H 02/08/21 21:00 Temperature Source Axillary 02/08/21 21:00 Pulse Rate 117 H 02/08/21 21:00 Respiratory Rate 24 02/08/21 21:00 TAR Vitals Timing 1 Hour Post Infusion 02/08/21 19:35 Blood Pressure 105/63 L 02/08/21 21:00 Blood Pressure Mean 77 02/08/21 21:00 Blood Pressure Source Automatic Cuff 02/08/21 20:00 Blood Pressure Position Supine 02/08/21 20:00 02 Sat by Pulse Oximetry 95 02/08/21 21:00 Oxygen Delivery Method 02/08/21 21:00 Oxygen Flow Rate (LPM) 100 02/06/21 18:00 Lab Results for Past 12 Hours 02/08/21 21:27: POC Glucose 170 H 02/08/21 19:59: POC Glucose 206 H 02/08/21 15:26: POC Glucose 212 H 02/08/21 11:50: Blood Type AB Positive 02/08/21 06:15: Blood Type Confirm AB Positive Rapid Response Exam Patient in acute distress, toxic despite ventilation with 100% oxygen, pulseless currently receiving compressions. Blood from the oropharynx. - General General appearance: lethargic, in distress (Significant respiratory distress. 44% on room air) - Respiratory Respiratory exam: Present: other (Bilateral breath sounds) - Neurological Exam Neurological exam: Present: other (Debated GCS of 3) RR Procedures/Assess/Plan (1) COVID-19 Status: Acute - Assessment and plan all Dx Assessment and Plan for all problems:: Patient 60-year-old female with Covid on multiple pressors is actively being coded. Patient was on ZOLL monitor, and ACLS compressions gave epinephrine as indicated by ACLS patient rhythm remained in PEA with nonpalpable pulse. At 1 point did have a dopplerable pulse, however did not have significant perfusion. Gave bicarb, as well as calcium gluconate due to concern for respiratory failure with profound acidemia. 5 rounds of compressions were completed. She began hemorrhaging more blood from the oropharynx. Time of was called.
--- NOTE | 2021-02-09 00:22 | PC.NURSE ---
CODE BLUE CALLED, PATIENT PEA ON MONITOR, CPR INITIATED, MECHANICAL VENTILATION PRESENT. MEDS PER ACLS SEE JUL 2119 EPI 1 MG GIVEN, 2121 PULSE CHECK PEA, 2122 EPI 1 MG GIVEN, 2125 EPI 1 MG GIVEN, 2128 EPI 1 MG GIVEN, 2129 1 AMP OF BICARB GIVEN, 2130 CALCIUM CHLORIDE GIVEN, 2131 EPI 1 MG GIVEN. REMAIN IN PEA, CPR CONTINUOUS. [address] SAHU. TIME OF CALLED 2135
[2021-02-09 10:45] LABS: Hep A Ab, IgM Negative (Negative); Hepatitis B Core Antibody IgM Negative (Negative); Hepatitis B Surface Antigen Negative (Negative); Hepatitis C Antibody <0.1 s/co ratio (0.0-0.9)
--- NOTE | 2021-02-12 22:22 | HMH.DCSUM ---
General - General Admission date:: 02/05/21 <Senthil Burt - 02/17/21 09:42> 02/05/21 <Maribell Gaitan - 02/12/21 22:39> Discharge date: 02/08/21 <Maribell Gaitan - 02/12/21 22:39> HPI HPI: Ms. Hansen is a 60-year old female with a history of type 2 diabetes mellitus, cervical disc disease, hypertension, hyperlipidemia, and allergic rhinitis who has been sick for the last 3 days. She presented to the emergency room due to progressive shortness of breath. She states she has also had a cough but denies a fever. She states that she got so weak that she could not even see. She also states that she has had some diarrhea but no vomiting. She has a minimal p.o. intake for the last 3 days. Noted too that she has been to [place] recently and exposed to Covid. She has not had Covid immunization. Upon arrival to the emergency room she was in acute distress. Initially she was placed on a Ventimask due to O2 sats being 40%. This improved her saturation but she was still suboptimal. She was thus placed on BiPAP with an increase in her O2 sats greater than 90. Chest x-ray has not been read as yet. Laboratory data revealed a white blood cell count of 10,000 with a hemoglobin of 14.4 and hematocrit of 42.9. Blood chemistries show sodium of 141 potassium of 4.4 with a BUN of 29 and creatinine 0.9. Blood sugar is 320. Liver function studies showed an elevated AST at 75 and a normal ALT at 35. Alkaline phosphatase is also elevated at 137 troponin I 0.01. BNP is 275. Covid PCR test was detected. Flu a and B were negative. At time of this exam patient is comfortable. She states she is breathing better. She would like to have the mask off. She is thirsty and was assisted with a drink of water. She denies chest pain and abdominal pain. She states she does have a periodic nonproductive cough. <Maribell Gaitan - 02/12/21 22:39> Hospital Course Hospital Course: The patient was continued on BiPAP and placed on Covid protocol. Pulmonology was consulted. Repeat chest x-ray showed no change in multifocal pneumonia. Her sats did decrease when the BiPAP was taken off for any reason. Her sats were 85 to 90% on BiPAP with an FiO2 of 100%. It was felt she would likely need intubation. This was discussed with the patient and she was agreeable. She was seen by pulmonology who agreed with intubation and sedation. He initiated Rocephin and Zithromax and continued on remdesivir along with dexamethasone. The patient had venous Doppler studies showing no evidence of DVT. Dr. Santana was consulted for central line placement. Patient was also started on pressors with vasopressin and norepinephrine due to low BP. She was given a bolus of normal saline as well. Patient had an echo showing an EF of 25% and an elevated right ventricular systolic pressure of 40 mmHg. Cardiology saw the patient and felt she had severe cardiomyopathy with the appearance of Takosubo cardiomyopathy. They started her on milrinone for inotropic support and help with systolic congestive heart failure and felt they would add Lasix after the milrinone was started. Repeat chest x-ray showed no change in the multifocal pneumonia. Her liver function tests began to worsen. Tube feeds were started. Her liver function test became extremely elevated and she had a right upper quadrant ultrasound showing fatty liver and a small amount of perihepatic and pericholecystic fluid with a small right pleural effusion. The patient coded on 02/08/2021. ACLS protocol was followed. She began hemorrhaging blood from the oropharynx, therefore the time of was called at 21: 36. <Maribell Gaitan - 02/12/21 22:39> Objective Vital signs: Temp Pulse Resp BP Pulse Ox 101.9 F H 117 H 24 105/63 L 95 02/08/21 21:00 02/08/21 21:00 02/08/21 21:00 02/08/21 21:00 02/08/21 21:00 <Senthil Burt - 02/17/21 09:42> Temp Pulse Resp BP Pulse Ox 101.9 F H 117 H 24 105/6
== END 2021-02-08 23:58 | disposition expired | DRG 208 ==
LOC: ER 13:49 → ICU 22:30
PROVIDERS: Internal Medicine Pulmonary Disease; Admitting Provider Family Medicine; Emergency Provider Family Medicine; PCP Family Medicine; Visit Provider Family Medicine
DX: U07.1 COVID-19 (principal); J12.82 Pneumonia due to coronavirus disease 2019; J96.01 Acute respiratory failure with hypoxia; N17.9 Acute kidney failure, unspecified; R57.9 Shock, unspecified; E87.2 Acidosis; I42.9 Cardiomyopathy, unspecified; E11.9 Type 2 diabetes mellitus without complications; Z79.84 Long term (current) use of oral hypoglycemic drugs; J44.9 Chronic obstructive pulmonary disease, unspecified; E78.5 Hyperlipidemia, unspecified; I95.9 Hypotension, unspecified; R94.5 Abnormal results of liver function studies; I11.0 Hypertensive heart disease with heart failure; I50.9 Heart failure, unspecified
CPT/HCPCS: 31500; 94002; 36556; 36415; 71045; 76705; 80053; 80074; 81001; 82728; 82803; 82962; 83880; 84145; 84484; 85007; 85025; 85378; 86140; 86900; 86901; 87040; 87070; 87077; 87081; 87186; 87205; 93005; 93306; 93970; 94003; 94640; 94660; 99284; C1751; C9803; J2260; J2704; J3370; P9017; U0003; U0005